=== PATIENT | male | born 1980 | race Caucasian/White ===

== ENCOUNTER 2024-12-04 12:50 | Day surgery (SDC) | payer MEDICAID, SELFPAY ==
--- NOTE | 2024-12-03 10:49 | EKG_ITS ---
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
[2024-12-03 10:54] VITALS: BMI 25.3
[2024-12-03 12:01] LABS: Basophils # (Auto) 0.1 Thou/mm3 (0.0-0.2); Basophils % (Auto) 1 % (0-2.5); Eosinophils # (Auto) 0.1 Thou/mm3 (0.0-0.5); Eosinophils % (Auto) 2 % (0-10); Hematocrit 42.1 % (41.0-53.0); Hemoglobin 14.4 g/dL (13.5-16.0); Immature Granulocytes Auto 0.02 Thou/mm3 (0.00-0.00); Lymphocytes # (Auto) 1.5 Thou/mm3 (1.0-4.8); Lymphocytes % (Auto) 25 % (10-50); Mean Corpuscular HGB Conc 34.2 g/dl (31.0-37.0); Mean Corpuscular Hemoglobin 31.8 pg (25.0-35.0); Mean Corpuscular Volume 93 fL (80-100); Monocytes # (Auto) 0.5 Thou/mm3 (0.0-0.8); Monocytes % (Auto) 8 % (0-12); Neutrophils # (Auto) 4.0 Thou/mm3 (1.8-7.7); Neutrophils % (Auto) 64 % (37-80); Nucleated Red Blood Cell # 0.00 Thou/mm3 (0.00-0.00); Nucleated Red Blood Cell % 0 /100 WBC (0); Platelet Count 186 Thou/mm3 (140-440); RDW Standard Deviation 42.2 fL (35.1-43.9); Red Blood Count 4.53 Miln/mm3 (4.50-5.90); White Blood Count 6.2 Thou/mm3 (3.8-10.6)
[2024-12-03 12:16] LABS: INR 1.0 (0.9-1.3); Partial Thromboplastin Time 28.8 Seconds (22.0-36.0); Prothrombin Time 11.1 Seconds (9.0-12.2)
[2024-12-03 12:19] LABS: Anion Gap 9 (7-16); BUN/Creatinine Ratio 7 Ratio (12-20); Blood Urea Nitrogen 7 mg/dL (9-23); Calcium 9.2 mg/dL (8.3-10.6); Carbon Dioxide 28.0 mMol/L (20.0-31.0); Chloride 105 mMol/L (98-107); Creatinine (Component) 1.0 mg/dL (0.6-1.3); Estimated Creatinine Clearance 98.3 mL/min (>60); Glucose 90 mg/dL (74-106); Osmolality,Calculated 281 (275-295); Potassium 4.1 mMol/L (3.4-5.1); Sodium 142 mMol/L (136-145); eGFR > 60 See Note
--- NOTE | 2024-12-03 14:04 | ESHP_ITS ---
RE: ROXANA PACE : 1980 DATE OF ADMISSION: 12/03/2024 The patient came to my office on 12/03/2024 for detailed preop history and physical examination. HISTORY OF PRESENTING COMPLAINT: The patient presented to me with history of pain in the right shoulder. Pain is going on for more than a couple of years, but last 5-6 months is quite painful. The patient graded intensity of the pain to be 9-10/10. Quality of life and activities of daily living is affected. Sleep is affected due to pain. The patient had cortisone shot and it did not help him. The patient has not done physical therapy stating that he is unable to move his left arm at all. MRI scan was obtained earlier, which revealed torn rotator cuff. PAST MEDICAL HISTORY: No history of diabetes mellitus, high blood pressure, asthma, seizure, chest pain, myocardial infarction, or bleeding disorder. PAST SURGICAL HISTORY: Status post left ankle fracture surgery. DRUG HISTORY: Nil known. ALLERGIES: NIL KNOWN. FAMILY HISTORY AND SOCIAL HISTORY: The patient denies smoking, drinking and is working. PHYSICAL EXAMINATION: GENERAL: Normal built person. VITAL SIGNS: BMI is 25.10, pulse 78 per minute, blood pressure is 137/85. NECK: Soft. Supple. No mass felt. Trachea is centrally placed. CARDIOVASCULAR SYSTEM: First and second heart sounds normal. No murmur heard. RESPIRATORY SYSTEM: Bilateral vesicular breath sounds. CHEST: Clear. ABDOMEN: Soft. No mass felt. Bowel sounds present. EXTREMITIES: Right shoulder examination reveals no wasting. There is 2+ tenderness at AC joint. Active range of motion is 0-100 degrees of abduction and 0-110 degrees of forward flexion. Internal rotation is severely restricted and painful. [place] test is positive. Drop arm test is positive and impingement test is positive as well. The patient has weak fist and park ranger. DIAGNOSTIC DATA: MRI scan revealed torn rotator cuff with DJD at the AC joint. The patient also has mild SLAP lesion. Mild subacromial and subdeltoid bursitis. ASSESSMENT AND PLAN: With the help of pictures and diagram of the shoulder model, the diagnosis and prognosis was explained. I explained that the patient needs surgical procedure. With the help of health care recruiter and diagram, the procedure was explained in detail. Explained that from 2 different bones, a small piece of the bone may be excised. Ligament has to be removed. Besides that, a repair of the rotator cuff will be done. All questions were answered. Risks with anesthesia were explained and that includes, but is not limited to, reaction to anesthetic agents, cardiac arrest, and rarely, it might be fatal. Risk with operation includes infection and if that happens, the patient will need further surgical procedure. Other risks include delayed healing, wound dehiscence, etc. No guarantee is given regarding the outcome of the procedure and/or relief of symptoms. Indeed, sometimes there is a risk of nerve damage because manipulation of the shoulder will be done as well. No guarantee is given regarding the outcome of the procedure, but indeed, physical therapy is very important component for successful outcome of this kind of procedure. Full cooperation is very helpful for successful outcome. Detailed discussion took place. The patient wanted to proceed with surgery. Surgery is booked for 12/04/2024. DT: 12:09:09 TT: 14:02:00 Ref: [id number] - TID: [id number]
[2024-12-04] VITALS (7 sets, daily range): BP systolic 122–144; BP diastolic 81–95; PULSE 60–100; RESP 14–18; TEMP 36.4–36.7; O2SAT 95–99; BMI 25.0
[2024-12-04] MEDS: RINGERS LACTATED 1000 ML 1,000 ML 20 ML IV (13:44)
--- NOTE | 2024-12-04 16:18 | ESOP_ITS ---
Date of Procedure 12/04/24 Pre Op Diagnosis 1. Right rotator cuff tear 2 right shoulder impingement syndrome Post Op Diagnosis Same Procedure 1. Excision lateral end of the clavicle 2 excision coracoacromial ligament 3. Acromioplasty 4. Repair of rotator cuff 5. Manipulation under anesthesia Findings Refer dictation Procedure Description The patient was given general endotracheal anesthesia. Shoulder block was also given. Once satisfactory anesthesia was achieved patient was put in about 45?? sitting position with sandbag underneath the shoulder blade. The part was thoroughly prepped and draped. A skin incision was made at the AC joint extending proximally towards the neck for a half inches and distally towards the arm for about couple of inches. Deeper dissection was carried out. Bleeding vessels were electrocoagulated as and when encountered. The soft tissue was reflected. Following that AC joint was exposed and AC joint was exposed. The deltoid muscle was reflected from the anterior and lateral aspect of the acromial process. It revealed 3 mm osteophytes on the anterior side and couple of millimeter osteophytes on the lateral side. Following that a periosteal elevator was placed underneath the lateral end of the clavicle and lateral 3-4 mm was excised. The coracoacromial ligament was removed. The anterior 2 mm and lateral 2 mm along with osteophytes were removed with the help of saw. With the help of curved osteotome the undersurface of the Acromial processes was chiseled out. That made more room between the superior surface of the head of the humerus and undersurface of the acromial process. Following that the rotator cuff was inspected. It revealed an oval tear, however most of the fibers were attached to the greater tuberosity. Wound was irrigated with antibiotic solution every 4-5 minutes. The right shoulder was manipulated at this time. Full range of abduction and forward flexion was achieved The rotator cuff tear was repaired with 2-0 Vicryl. 2 drill holes were made on the acromial process and deltoid muscle was stitched back to it. Some reinforcement sutures were placed. The subcutaneous tissue was then closed with the help of 2-0 Vicryl and 3-0 Vicryl in layers. The skin was closed with guillermo. After cleaning the wound with hydrogel proximal solution and sterile dressing was applied. Patient was taken to the recovery room in good condition. Estimated blood loss 20 mL. Prognosis in this case is good. Anesthesia GETA and other Pathology / specimen None Estimated Blood Loss 20 Surgeon Venkat Pacheco MD Surgical Staff Operation Date: 12/04/24 15:30 Case Staff Anesthesiologist: Ortega Mueller RNsales correspondence clerk: Deandre Jeff
--- NOTE | 2024-12-04 16:30 | SUR.PHASEI ---
1630 Patient arrived to recovery resting comfortably in [facility], awake and talking with staff, breathing unlabored, vital signs stable, denies pain, dressing intact to right shoulder; guillermo, adaptic, fluffs, abd, medipore tape, no bleeding noted, denies nausea, report received from Nino SCHNEIDER and Dr. Mueller
--- NOTE | 2024-12-04 17:22 | SUR.PHASEII ---
1722 Patient meets discharge criteria from awake and alert, breathing unlabored, vital signs stable, denies pain, dressing intact; no bleeding noted, arm sling in place for support, assisted with dressing into his clothing by his , discharge instructions given to patient and patients , signed discharge instructions. Patient given all his belongings prior to discharge, transported via wheelchair and left in a private vehicle.
--- NOTE | 2024-12-06 14:40 | PD.ANESPROG ---
Documentation for date of: 12/06/24 POST ANESTHESIA FOLLOW UP: Patient had general LMA anesthesia and R interscalene nerve block for R rotator surgery on 12/04/24. I just called and spoke with him on the phone and he denied any problems from anesthesia and said No problem at all, everything was great. Ortega Mueller MD Anesthesia Progress Note Progress Note Most recent Vital Signs: Last Vital Signs Temp 98.0 F 12/04/24 17:00 Pulse 88 12/04/24 17:15 Resp 15 12/04/24 17:15 BP 130/95 H 12/04/24 17:15 Pulse Ox 98 12/04/24 17:15
== END 2024-12-04 17:22 | disposition home or self-care (01) ==
PROVIDERS: PCP Family Medicine; Referring Provider Orthopaedic Surgery; Visit Provider Orthopaedic Surgery
PROC: (CPT 23412; principal; 2024-12-04 16:00)
DX: M75.101 Unspecified rotator cuff tear or rupture of right shoulder, not specified as traumatic (principal); M75.41 Impingement syndrome of right shoulder; Z01.810 Encounter for preprocedural cardiovascular examination
CPT/HCPCS: 23412; 23130; 23120; 36415; 80048; 85025; 85610; 85730; 93005; A4217; A4649; J1100; J2250; J2704; J2765; J2795; J3010; J3490; J7120

== ENCOUNTER 2024-12-18 06:08 | Inpatient (IN) | payer MEDICAID, SELFPAY ==
[2024-12-18] VITALS (27 sets, daily range): BP systolic 112–168; BP diastolic 66–100; PULSE 54–83; RESP 12–96; TEMP 36.3–36.9; O2SAT 94–100; BMI 25.1; BMI 24.8
--- NOTE | 2024-12-18 06:23 | XR_ITS ---
Examination: CT right shoulder, without contrast. 2-D sagittal reconstructions. 2-D coronal reconstructions. 3-D reconstructions. Date and time of exam:December 18, 2024 0824 hours INDICATIONS: Shoulder pain with drainage today and fever, shoulder surgery 2 weeks ago CTDI: vol (mGy):11.5. DLP: (mGycm):326. Technique: Multiple 1.25 mm axial sections of the right shoulder without intravenous contrast have been obtained. 2-D sagittal and coronal reconstructions have been obtained. 3-D reconstructions have been obtained. Low dose protocols were performed. One or more of the following dose reduction techniques were used; automated exposure control, adjustment of the mA and/or KV according to patient size, use of iterative reconstruction technique. Findings: Humeral head neck and shaft appear intact No shoulder dislocation No AC joint separation No soft tissue abscess No foreign body IMPRESSION: No fracture or dislocation No soft tissue abscess depicted Consider elective MRI shoulder without contrast follow-up as clinically warranted
--- NOTE | 2024-12-18 06:29 | PD.EDWOUND ---
ED Wound/Laceration-RME/HPI General Chief Complaint: Wound/Laceration Stated Complaint: RIGHT SHOULDER WOUND Time Seen by Provider: 12/18/24 06:14 Arrival date/time: 12/18/24 06:08 Limitations: no limitations RME / HPI RME / HPI narrative: DR. OWEN YANCEY ED EVALUATION: 44-year-old male with history of lymphoma with concern for possible recurrence of lymphoma presents to the Emergency Department with complaint of discharge from right arm following recent right rotator cuff repair performed by Dr. Rosa on 12/04/2024. Patient was started on Keflex on Saturday after his post-op visit. He returned to the surgeon yesterday and was sent to the ED for IV antibiotics and admission. He drinks alcohol occasionally (2 beers) and denies drug use. No known allergies. Related Data Home Medications ?Medication ?Instructions ?Recorded ?Confirmed No Known Home Medications 12/03/24 12/03/24 Allergies Allergy/AdvReac Type Severity Reaction Status Date / Time No Known Allergies Allergy Verified 12/04/24 13:20 Review of Systems Review of Systems Systems Reviewed: All systems reviewed, normal except as documented Past Medical History Past Medical History MUSCULOSKELETAL: Positive Musculoskeletal Disorders and Fractures (Left ankle) OTHER HISTORY: Positive Chemotherapy, Chicken Pox and Cancer (Non Hodgkin lymphoma) Family History FAMILY HISTORY: Positive Family Surgery Social History SMOKING STATUS: Never smoker SUBSTANCE USE: does not use ALCOHOL: Current ALCOHOL FREQUENCY: 0-2 Drinks per Day ED Exam General Limitations: Present no limitations General appearance: Present alert and in no apparent distress Head Head exam: Present atraumatic, normocephalic and normal inspection Eye Eye exam: Present normal appearance, PERRL and EOMI ENT ENT exam: Present normal exam, normal oropharynx and mucous membranes moist Neck Neck exam: Present normal inspection, full ROM and trachea midline Chest Chest inspection: Present normal inspection and symmetric chest wall rise Respiratory Respiratory exam: Present normal lung sounds bilaterally Cardiovascular Cardiovascular exam: Present regular rate, normal rhythm and normal heart sounds Abdominal Exam Abdominal exam: Present soft and normal bowel sounds Extremities Exam Extremities exam: Present full ROM and other (Right arm surgical scar that measures 5 cm, looks dry now with some surrounding erythema and mild tenderness; otherwise good 2+ pulses and FROM) Back Exam Back exam: Present normal inspection and full ROM Neurological Exam Neurological exam: Present alert, oriented X3 and CN II-XII intact Psychiatric Psychiatric exam: Present normal affect and normal mood Skin Skin exam: Present warm, dry, intact and normal color Course Quality Measures none Orders Category Date Time Status CT Screening NOW Care 12/18/24 06:24 Completed NPO NOW Care 12/18/24 07:48 Active Diet NPO (NOW) Diet 12/18/24 07:[address] shoulder RT w con Stat Exams 12/18/24 06:23 Completed Abscess Culture and Gram Stain Stat Lab 12/18/24 07:48 Ordered Blood Culture (Lab) Stat Lab 12/18/24 07:36 Received CBC Stat Lab 12/18/24 07:36 Completed CMP [Comprehensive Metabolic Panel] Stat Lab 12/18/24 07:36 Completed PT [Prothrombin Time with INR] Stat Lab 12/18/24 07:36 Completed Vancomycin,Trough Stat Lab 12/19/24 05:00 Ordered Piper/Tazo Inj [Zosyn Inj] 4.5 gm Med 12/18/24 06:26 Discontinued Sodium Chloride 0.9% (Pop) [NS 0.9% mini bag] 100 ml IV NOW Ringers Lactated 1000 ml [Lactated Ringers] 1,000 ml Med 12/18/24 06:27 Discontinued IV 999 mls/hr Vancomycin Inj 1,500 mg Med 12/18/24 08:00 Active Sodium Chloride 0.9% 500 ml [Ns] 500 ml IV X1 Vancomycin Pharmacy to Dose Med 12/18/24 06:26 Active 1 each IV QDAY PRN Vancomycin/Water 1Gm Ivpb 200 ml Med 12/18/24 14:00 Pending IV Q8HR Vital Signs Vital signs: Vital Signs Temperature 97.5 F 12/18/24 06:22 Pulse Rate 67 12/18/24 06:22 Respiratory Rate 17 12/18/24 06:22 Blood Pressure 131/79 H 12/18/24 06:22 Pulse Oximetry (%) 97 12/18/24 06:22 Oxygen Delivery Method Room Air 12/18/24 06:22 Wound / Laceration MDM Narrative MDM Narrative:: Patient is a 44-year-old male with medical history notable for non-Hodgkin's lymphoma that is in the emergency department with concerns for surgical complication of his right shoulder rotator cuff repair. Vital signs and exam as listed. Concern for cellulitis, deep space wound infection. Patient nontoxic does not appear septic at this time. Patient is GCS 15. Ordered labs, broad-spectrum antibiotics, CT of the right shoulder with contrast. Will also consult patient's orthopedic surgeon. 0751: Dr. Pacheco called and said to cancel CT and just admit as he would like to take the patient to the operating room sometime today. I, Sonia Taylor, am scribing for and in the presence of Dr. Phillips. Discussed case with the hospitalist team, would like to wait on results of labs before admission. Labs returned, no acute hematologic or significant metabolic abnormalities. Patient did go to CT before I was able to cancel it. CT does not show any deep space fluid collection or abscess. Discussed case with hospitalist team, kindly accepted patient for admission Patient data External records reviewed:: [facility] previous records Clinical information provided by:: patient Social determinants that could affect healthcare access:: alcohol use (He drinks alcohol occasionally (2 beers) and denies drug use.) Patient has the following chronic illnesses:: lymphoma with concern for possible recurrence of lymphoma. No known allergies. How is presenting disease/condition affected by chronic disease/condition?: exacerbated by (History of non-Hodgkin's lymphoma) Evaluation data The following diagnostics were reviewed and interpreted by me:: lab results Lab and/or radiology exams considered but not ordered:: Shoulder CT but Dr. Pacheco would like to just admit. Interpretation Summary: See narrative above. Medications / Prescriptions Medications or Prescriptions considered but not ordered:: None Medication administrations:: Medication Administration History Vancomycin HCl 1,500 mg/ (Sodium Chloride) 500 mls @ 200 mls/hr IV X1 ONE Stop: 12/18/24 10:29 Last Admin: 12/18/24 09:19 Dose: 200 mls/hr Documented By: TM Vancomycin HCl (Vancomycin/Water 1gm Ivpb) 200 mls @ 120 mls/hr IV Q8HR MELISSA; Protocol Stop: 12/25/24 13:59 Ceftriaxone Sodium/Dextrose (Rocephin/D5w 1gm Iv Premix) 1 gm in 50 mls @ 100 mls/hr IV QDAY MELISSA Stop: 12/26/24 08:59 Pharmacy Consult (Vancomycin Pharmacy To Dose 1 Each Each) 1 each IV QDAY PRN PRN Reason: PROTOCOL Stop: 01/17/25 06:25 Discontinued Medications Piperacillin Sod/Tazobactam (Sod 4.5 gm/ Sodium Chloride) 100 mls @ 200 mls/hr IV NOW ONE Stop: 12/18/24 06:55 Last Admin: 12/18/24 08:14 Dose: 200 mls/hr Documented By: YENIFER Lactated Ringer's (Lactated Ringers) 1,000 mls @ 999 mls/hr IV .Q1H1M ONE Stop: 12/18/24 07:27 Last Admin: 12/18/24 08:15 Dose: 999 mls/hr Documented By: TM see above Consultations Consultation(s) initiated? (list below): Yes Consultation #1 (Physician, Specialty, Details): Discussed test HPI, PMHx, lab, radiology results and/or management with Dr. Pacheco. Will consult an admission to the hospitalist. Time: 06:35 Consultation #2 (Physician, Specialty, Details): Dr. Pacheco called would like the patient admitted Time: 07:51 Diagnosis Wound Differential Diagnosis: abscess (cellulitis, post-surgical wound infection, abscess formation, and lymphoma recurrence with secondary drainage) and other (Cellulitis) Most likely diagnosis given after review of the tests above:: Surgical complication, wound infection Admission Indicated Admission indicated?: indicated Admission Request Was there a request for admission?: Yes Admission Attestation Admission request attestation: Discussed case with resident from Hospitalist service regarding admission. Discussed patients ED course, exam findings, labs, and radiology results. The Hospitalist agrees to accept the patient for admission. Disposition Plan Disposition Plan: Admit Discharge Plan Problem List Clinical Impression: Infected wound, Surgical complication
--- NOTE | 2024-12-18 07:40 | PC.NURSE ---
spoke w/lab at this time to request blood cultures to be drawn so meds can be started, reports they will when they come back from [facility]
[2024-12-18] MEDS: PIPER/TAZO INJ 4.5 GM in SODIUM CHLORIDE 0.9% (POP) 100 ML IV (08:14)
[2024-12-18] MEDS: RINGERS LACTATED 1000 ML 1,000 ML 999 ML IV (08:15)
[2024-12-18 08:16] LABS: Basophils # (Auto) 0.1 Thou/mm3 (0.0-0.2); Basophils % (Auto) 1 % (0-2.5); Eosinophils # (Auto) 0.2 Thou/mm3 (0.0-0.5); Eosinophils % (Auto) 3 % (0-10); Hematocrit 42.0 % (41.0-53.0); Hemoglobin 14.5 g/dL (13.5-16.0); Immature Granulocytes Auto 0.03 Thou/mm3 (0.00-0.00); Lymphocytes # (Auto) 1.3 Thou/mm3 (1.0-4.8); Lymphocytes % (Auto) 23 % (10-50); Mean Corpuscular HGB Conc 34.5 g/dl (31.0-37.0); Mean Corpuscular Hemoglobin 32.0 pg (25.0-35.0); Mean Corpuscular Volume 93 fL (80-100); Monocytes # (Auto) 0.4 Thou/mm3 (0.0-0.8); Monocytes % (Auto) 7 % (0-12); Neutrophils # (Auto) 3.7 Thou/mm3 (1.8-7.7); Neutrophils % (Auto) 65 % (37-80); Nucleated Red Blood Cell # 0.00 Thou/mm3 (0.00-0.00); Nucleated Red Blood Cell % 0 /100 WBC (0); Platelet Count 232 Thou/mm3 (140-440); RDW Standard Deviation 41.1 fL (35.1-43.9); Red Blood Count 4.53 Miln/mm3 (4.50-5.90); White Blood Count 5.7 Thou/mm3 (3.8-10.6)
[2024-12-18 08:34] LABS: Alanine Aminotransferase 105 U/L (10-49); Albumin, Serum 4.9 gm/dL (3.5-5.0); Albumin/Globulin Ratio 2.0 (1.2-2.2); Alkaline Phosphatase 69 U/L (46-116); Anion Gap 10 (7-16); Aspartate Amino Transferase 92 U/L (0-34); BUN/Creatinine Ratio 14 Ratio (12-20); Bilirubin,Total 0.5 mg/dL (0.3-1.2); Blood Urea Nitrogen 11 mg/dL (9-23); Calcium 9.6 mg/dL (8.3-10.6); Calcium (Corrected) 9.6 mg/dL (8.5-10.1); Carbon Dioxide 26.3 mMol/L (20.0-31.0); Chloride 103 mMol/L (98-107); Creatinine (Component) 0.8 mg/dL (0.6-1.3); Estimated Creatinine Clearance 122.9 mL/min (>60); Globulin 2.4 gm/dL (2.3-3.5); Glucose 87 mg/dL (74-106); Osmolality,Calculated 275 (275-295); Potassium 4.0 mMol/L (3.4-5.1); Sodium 139 mMol/L (136-145); Total Protein 7.3 gm/dL (5.7-8.2); eGFR > 60 See Note
[2024-12-18 08:55] LABS: INR 1.0 (0.9-1.3); Prothrombin Time 10.7 Seconds (9.0-12.2)
[2024-12-18] MEDS: Vancomycin Inj 1,500 MG in SODIUM CHLORIDE 0.9% 500 ML 500 ML 200 MG IV (09:19)
--- NOTE | 2024-12-18 10:35 | SUR.PREOP ---
Patient expressed gratitude for prayer before his procedure.
--- NOTE | 2024-12-18 11:00 | SUR.PREOP ---
Received report on pt. from Jenny SCHNEIDER in ER.
--- NOTE | 2024-12-18 11:46 | SUR.PREOP ---
Pt. transferred from ER to [facility] via w/c with all of belongings accompanied by . Pt. is AAOx3, VSS, no c/o pain or nausea at this time, pt. has 20g IV to left AC, dressing to right shoulder d/t s/p right rotator cuff repair on 12/04/24, redness and scant amount of yellowish drainage noted. Pt.'s at bedside. Pt. awaiting surgical procedure.
--- NOTE | 2024-12-18 13:30 | PD.SUROPNT ---
Date of Procedure 12/18/24 Pre Op Diagnosis 1. Is status post right rotator cuff repair with infections Post Op Diagnosis Same Procedure Incision debridement and drainage right shoulder Findings Refer dictation Procedure Description Patient was given general endotracheal anesthesia. Was satisfactory anesthesia was achieved patient was put in 45 degree sitting position. Sandbag was placed underneath the right shoulder. Following that the part was thoroughly prepped and draped. Wound culture swab was then obtained for aerobic anaerobic culture sensitivity and for Gram staining The skin margin towards the medial side was ragged and infected. Those were excised. The deeper dissection was carried out. All the infected tissue was then removed. No further pus came out. Following that wound was irrigated with copious amount of antibiotic solution, hydrogen peroxide solution and Betadine iodine was solution. Following that all the gloves and instruments were changed. The infection was present up to the subcu tissues and did not go to the muscle plane. The closure was done with the help of 1 Prolene in an interrupted fashion. Sterile dressing was applied. Anesthesia GETA Pathology / specimen None Estimated Blood Loss 10 Surgeon Venkat Pacheco MD Surgical Staff Operation Date: 12/18/24 14:00 <No data on this case meets the specified criteria>
--- NOTE | 2024-12-18 13:35 | SUR.PHASEI ---
pt awake, alert, able to follow commands, breathing unlabored, dressing to right shoulder clean, dry, and intact, report from Breanna RN
--- NOTE | 2024-12-18 13:45 | SUR.PHASEI ---
pt tolerating oral fluids without difficulty swallowing or n/v
--- NOTE | 2024-12-18 14:01 | ESHP_ITS ---
<Statement entered by Jenise Choi MD - 12/18/24 15:07> I have reviewed the note and agree with the resident's assessment & plan with exceptions as below. I have personally reviewed labs, imaging, home meds/prior records, examined the patient, formulated and discussed management plan with the IM team. Pt is a 44 y/o male with PMHx of Non-Hodgkin's lymphoma (in remission since 2019, handled by chemotherapy) who comes for an evaluation of R shoulder pain, and drainage with associated fever that has been going on for 5 days. Pt reports that his orthopedic surgeon, Dr. Escalante, had did an operation on his shoulder for his torn rotator cuff. He started to feel fevers and shoulder pain about 5 days after the procedure and was on Keflex for 2 days, which helped his fever. He reports that he has had to change his shoulder dressing multiple times and he spoke with his ortho doctor who recommended him to go to the ER for admission for possible washout procedure and IV abx. Pt will get procedure done, Ortho consulted, appreciate recs. Will start pt on IV abx with Rocephin and Vancomycin, will hold on Pseudomonal overage at this time as patient does not have DM. Will order MRSA screen and continue with multimodal pain analgesia. Repeat hematology, and chemistry in AM. #Shoulder pain #Shoulder erythema DDx: Abscess, cellulitis, Osteomyelitis Plan: - IV Rocephin + Vancomycin - MRSA Screen - Ortho consulted, Appreciate recs - Multimodal pain analegesia #Nicotine Dependence Plan: - Nicotine Patch as needed Jenise Choi, PGY-2 Internal Medicine Documentation for date of: 12/18/24 HPI History of Present Illness Chief complaint: R shoulder pain and drainage History of present illness: A 44 y/o male with PMHx of Non-Hodgkin's lymphoma (in remission since 2019, s/p chemotherapy) who comes for an evaluation of R shoulder pain, and drainage with associated fever that has been going on for 5 days. Pt reports that his orthopedic surgeon, Dr. Escalante, had did an operation on his shoulder for his torn rotator cuff. He started to feel fevers and shoulder pain about 5 days after the procedure and was on Keflex for 2 days, which helped his fever. He reports that he has had to change his shoulder dressing multiple times and he spoke with his ortho doctor who recommended him to go to the ER for admission for possible washout procedure and IV abx. He is also scheduled to get a lymph node biopsy by his Oncologist in a week or so who is based out in [place]. Denies any CP, SOB, wheezing, fevers, chills, or NVD at this time. ED Course: T: 97.5 HR: 67, RR: 17, BP 131/79, SPO2: 98 on RA. Physical exam was notable for a right arm surgical scar that measures 5 cm, was dry with some surrounding erythema and mild tenderness. CBC and coagulation panel are unremarkable. CMP is notable for AST [address] Shoulder CT: No fracture or dislocation, No soft tissue abscess depicted Medications administered: zosyn 4.5g IV x1, LR 1L IV x1, Vancomycin 1500mg IV x1 PMHx: As above Surgeries: Rotator cuff repair Meds: Does not take any medicines Allergies: NKDA Family Hx: Limited family hx at this time. Social Hx: Does construction for a living, uses [employer] occassionally, drinks ~2 beers a night, used to smoke cigerattes for 20 years, however uses oral nicotine now (Zyns) Review of Systems Review of Systems Systems Reviewed: All systems reviewed, normal except as documented Narrative Review of Systems: 12 point ROS reviewed and is otherwise negative unless stated directly in the HPI. Past Medical History Past Medical History RESPIRATORY: Positive Tobacco Use OTHER HISTORY: Positive Chemotherapy (Hx of Non-Hodgkins lymphoma in remission since 2019 s/p chemotherapy) Social History SMOKING STATUS: Former smoker (20 years ago) SUBSTANCE USE: marijuana ALCOHOL: Current (~2 beers a night) ALCOHOL FREQUENCY: 0-2 Drinks per Day Exam Vital Signs Temp Pulse Resp BP Pulse Ox O2 Del Method 97.8 F 54 L 13 138/91 H 99 Room Air 12/18/24 11:23 12/18/24 11:23 12/18/24 11:23 12/18/24 11:12/18/24 11:12/18/24 08:32 Narrative Exam General: AAOx3, NAD, well appearing male HEENT: Moist mucous membranes, conjunctiva clear, EOMI, PERRLA, Cardiovascular: S1, S2, radial pulses +2 bilat, RRR Pulmonary: CTAB bilat no cough, no wheezing GI: No tenderness to light or deep palpitation, no guarding, rigidity, rebound tenderness or distension Extremities: No presence of trace or pitting edema in lower extremities bilaterally, dorsalis pedis pulses +2 bilaterally, R shoulder incision seen with some erythema and is purluent over dressing Neuro: AAOx3, no focal motor or sensory deficits in the UE or LE bilat Psych: Good judgement, thought and behavior Results: Labs 12/19/24 06:49 12/19/24 06:49 Labs: Short CBC 12/18/24 Range/Units 07:36 WBC 5.7 (3.8-10.6) Thou/mm3 Hgb 14.5 (13.5-16.0) g/dL Hct 42.0 (41.0-53.0) % Plt Count 232 D (140-440) Thou/mm3 BMP 12/18/24 07:36 Sodium 139 Potassium 4.0 Chloride 103 Carbon Dioxide 26.3 BUN 11 Creatinine 0.8 Glucose 87 Calcium 9.6 Liver Function 12/18/24 Range/Units 07:36 Total Bilirubin 0.5 (0.3-1.2) mg/dL AST 92 H (0-34) U/L ALT 105 H (10-49) U/L Alkaline Phosphatase 69 (46-116) U/L Albumin 4.9 (3.5-5.0) gm/dL Quality Measures Quality Measures none Medications Home Medications and Allergies Home Medications ?Medication ?Instructions ?Recorded ?Confirmed ?Type cephalexin 500 mg capsule 500 mg PO Q8H 12/18/2412/18 History hydrocodone 5 mg-acetaminophen 325 1 tab PO Q6H PRN pa in 12/18/24 12/18/24 History mg tablet Allergies Allergy/AdvReac Type Severity Reaction Status Date / Time No Known Allergies Allergy Verified 12/18/24 13:57 Visit Medications Fentanyl Citrate (Fentanyl Cit Inj 50 Mcg/Ml Amp 2ml) 50 mcg IVP Q5M PRN PRN Reason: PAIN SCALE 4-10(Mod-Sev Stop: 12/18/24 15:08 Hydralazine HCl (Hydralazine Inj 20 Mg/Ml Vial) 5 mg IVP Q20M PRN PRN Reason: SEE COMMENTS Stop: 12/18/24 15:08 Vancomycin HCl (Vancomycin/Water 1gm Ivpb) 200 mls @ 120 mls/hr IV Q8HR MELISSA; Protocol Stop: 12/25/24 13:59 Ceftriaxone Sodium/Dextrose (Rocephin/D5w 1gm Iv Premix) 1 gm in 50 mls @ 100 mls/hr IV QDAY MELISSA Stop: 12/26/24 08:59 Vancomycin HCl (Vancomycin/Water 1gm Ivpb) 200 mls @ 120 mls/hr IV X1 ONE; Protocol Stop: 12/18/24 15:39 Promethazine HCl 12.5 mg/ (Sodium Chloride) 50.5 mls @ 2.5 mls/min IV X1 PRN PRN Reason: NAUSEA OR VOMITING Stop: 12/18/24 15:08 Meperidine HCl (Meperidine Inj 50 Mg/Ml Vial) 12.5 mg IVP Q5M PRN PRN Reason: SHIVERING Stop: 12/18/24 15:08 Midazolam HCl (Midazolam Inj 1 Mg/Ml Vial 2 Ml) 1 mg IVP Q5M PRN PRN Reason: ANXIETY Stop: 12/18/24 15:08 Morphine Sulfate (Morphine Sulf Inj 10 Mg/Ml Vial) 4 mg IVP Q10M PRN PRN Reason: PAIN SCALE 4-10(Mod-Sev Stop: 12/18/24 15:08 Ondansetron HCl (Ondansetron Inj 2 Mg/Ml Inj 2 Ml) 4 mg IVP X1 PRN PRN Reason: NAUSEA OR VOMITING Stop: 12/18/24 15:08 Pharmacy Consult (Vancomycin Pharmacy To Dose 1 Each Each) 1 each IV QDAY PRN PRN Reason: PROTOCOL Stop: 01/17/25 06:25 Discontinued Medications Piperacillin Sod/Tazobactam (Sod 4.5 gm/ Sodium Chloride) 100 mls @ 200 mls/hr IV NOW ONE Stop: 12/18/24 06:55 Last Infusion: 12/18/24 08:44 Dose: Infused Lactated Ringer's (Lactated Ringers) 1,000 mls @ 999 mls/hr IV .Q1H1M ONE Stop: 12/18/24 07:27 Last Admin: 12/18/24 08:15 Dose: 999 mls/hr Vancomycin HCl 1,500 mg/ (Sodium Chloride) 500 mls @ 200 mls/hr IV X1 ONE Stop: 12/18/24 10:29 Last Admin: 12/18/24 09:19 Dose: 200 mls/hr Assessment & Plan Plan Assessment and Plan A 44 yo male with a PMH of Non-Hodgkin's lymphoma (in remission since 2019 s/p chemoradiation) presents with R shoulder pain and drainage with associated fever s/p right rotator cuff repair. Patient is being admitted following incision debridement and drainage of right shoulder by Dr. Pacheco. #S/P right rotator cuff repair w/ possible septic joint #S/P incision debridement and drainage R shoulder Patient presents with right shoulder pain, erythema, and drainage. Patient was recommended by Dr. Pacheco to present to ED for IV abx and surgical intervention as he was having surgical site pain and increased drainage despite being placed on oral keflex Plan: - IV Rocephin + Vancomycin - MRSA Screen - Ortho consulted, Appreciate recs - Multimodal pain analegesia per pain scale protocol #Nicotine Dependence Patient used to smoke cigerattes for 20 years, however uses oral nicotine now (Zyns) Plan: - Nicotine Patch as needed Health Maintenance: Disposition: Medsurg DVT Prophylaxis: Pending ortho recs Diet: Regular CODE STATUS: Full Code Case and Plan discussed with my attending physician, , and my senior resident, Dr. Jimbo Puentes, [facility] Attending Provider Attestation/Addendum I have discussed and was present for the essential components of the history, physical examination, diagnosis, and treatment plan with the resident. I agree with the patient's care as documented by the resident and amended herein by me. Yahir Arias DO. Although this document has been carefully reviewed, there may still be some phonetic and other typographical errors. These errors are purely grammatical due to imperfections in the software program and should not be construed in any way to compromise the substance of the patient's medical care during this visit.
--- NOTE | 2024-12-18 14:46 | SUR.PHASEI ---
Report to Breanna RN
[2024-12-18] MEDS: NICOTINE PATCH 7 MG/24 HR PATCH.TD24 TOP (15:19)
--- NOTE | 2024-12-18 15:44 | SUR.PHASEI ---
1324: Pt received in [facility] via [facility]. Report from Bobo SCHNEIDER and Dr. Mueller. Pt groggy, but awake. Resp even, unlabored. BP elevated. No recommendations from anesthesia. Other VS stable. Dressing to right shoulder dry, clean, intact. No c/o pain.
--- NOTE | 2024-12-18 15:47 | SUR.PHASEI ---
1335: Report to Camron SCHNEIDER. 1446: Assumed care. Pt resting with no complaints voiced. VS stable. Dressing dry, clean, intact. Pt consumed 75% of lunch meal. at bedside. Vancomycin infusion complete. No untoward effects observed. 1515: Pt has been resting with no complaints voiced. Pt provided urinal. Voided 325cc clear yellow urine. 1519: Received Nicotine Patch from pharmacy. Applied to left upper arm.
--- NOTE | 2024-12-18 16:15 | SUR.PHASEI ---
1610: Pt voided using urinal. 300cc clear yellow urine. VS stable. Dressing remains unchanged.
--- NOTE | 2024-12-18 16:53 | SUR.PHASEI ---
1645 Awake and alert, sitting upp in bed, right shoulder dressing clean dry and intact, no complaints ,no s/s of distress noted , at bedside.
--- NOTE | 2024-12-18 18:03 | SUR.PHASEI ---
9584 Transfer to room 355 in stable condition, no complaints, no s/s of distress noted, no change to right shoulder dressing, at bedside./
[2024-12-18] MEDS: VANCOMYCIN/WATER 1GM IVPB 200 ML IV (22:19)
[2024-12-19] VITALS (8 sets, daily range): BP systolic 111–138; BP diastolic 68–81; PULSE 58–101; RESP 17–96; TEMP 36.2–36.7; O2SAT 93–99
[2024-12-19] MEDS: VANCOMYCIN/WATER 1GM IVPB 200 ML IV ×3 (05:26→21:04)
[2024-12-19 07:11] LABS: Basophils # (Auto) 0.1 Thou/mm3 (0.0-0.2); Basophils % (Auto) 1 % (0-2.5); Eosinophils # (Auto) 0.0 Thou/mm3 (0.0-0.5); Eosinophils % (Auto) 0 % (0-10); Hematocrit 38.5 % (41.0-53.0); Hemoglobin 13.4 g/dL (13.5-16.0); Immature Granulocytes Auto 0.05 Thou/mm3 (0.00-0.00); Lymphocytes # (Auto) 1.3 Thou/mm3 (1.0-4.8); Lymphocytes % (Auto) 13 % (10-50); Mean Corpuscular HGB Conc 34.8 g/dl (31.0-37.0); Mean Corpuscular Hemoglobin 31.8 pg (25.0-35.0); Mean Corpuscular Volume 91 fL (80-100); Monocytes # (Auto) 0.7 Thou/mm3 (0.0-0.8); Monocytes % (Auto) 7 % (0-12); Neutrophils # (Auto) 8.3 Thou/mm3 (1.8-7.7); Neutrophils % (Auto) 79 % (37-80); Nucleated Red Blood Cell # 0.00 Thou/mm3 (0.00-0.00); Nucleated Red Blood Cell % 0 /100 WBC (0); Platelet Count 236 Thou/mm3 (140-440); RDW Standard Deviation 39.3 fL (35.1-43.9); Red Blood Count 4.21 Miln/mm3 (4.50-5.90); White Blood Count 10.5 Thou/mm3 (3.8-10.6)
[2024-12-19 07:40] LABS: Alanine Aminotransferase 100 U/L (10-49); Albumin, Serum 4.3 gm/dL (3.5-5.0); Albumin/Globulin Ratio 2.0 (1.2-2.2); Alkaline Phosphatase 60 U/L (46-116); Anion Gap 9 (7-16); Aspartate Amino Transferase 60 U/L (0-34); BUN/Creatinine Ratio 11 Ratio (12-20); Bilirubin,Total 0.8 mg/dL (0.3-1.2); Blood Urea Nitrogen 9 mg/dL (9-23); Calcium 9.4 mg/dL (8.3-10.6); Calcium (Corrected) 9.4 mg/dL (8.5-10.1); Carbon Dioxide 24.4 mMol/L (20.0-31.0); Chloride 107 mMol/L (98-107); Creatinine (Component) 0.8 mg/dL (0.6-1.3); Estimated Creatinine Clearance 122.9 mL/min (>60); Globulin 2.2 gm/dL (2.3-3.5); Glucose 95 mg/dL (74-106); Magnesium 1.7 mg/dL (1.6-2.6); Osmolality,Calculated 278 (275-295); Phosphorous 3.0 mg/dL (2.4-5.1); Potassium 4.1 mMol/L (3.4-5.1); Sodium 140 mMol/L (136-145); Total Protein 6.5 gm/dL (5.7-8.2); eGFR > 60 See Note
[2024-12-19] MEDS: cefTRIAXone/D5w 1gm IV premix 1 GM/50 ML BAG IV (08:45)
--- NOTE | 2024-12-19 11:08 | PC.SS ---
Patient is a 44YO White male, reason for visit: ARTHROSCOPIC LAVAGE. ? Transmission Inspector met with patient at bedside to complete initial assessment. Role and purpose of today?s contact was explained. Patient confirmed his demographic information. He stated his father Mik Caldwell Sr. [phone] is his primary medical surrogate decisionmaker. Patient reported being independent with ADL completion and independent with ambulation as well. [facility] PCP: KARYNA, last appt. was 6 months ago. Next of kin: Parent Mik Caldwell Sr. [phone]. Discharge plan: Home, family to transport.
[2024-12-19] MEDS: NICOTINE PATCH 14 MG/24 HR PATCH.TD24 TOP (11:48)
--- NOTE | 2024-12-19 11:51 | ESPR_ITS ---
Documentation for date of: 12/19/24 Subjective Subjective Interval history: Patient was seen and examined at bedside. No acute events took place overnight. Patient states that he has not seen the incision site post I&D as it has been wrapped up in dressings, but the pain is improved. Denies fevers. Active range of motion is limited with overhead motions. Patient adds, that the current dose of the nicotine patch is not helpful and demands a stronger patch. Exam Vital Signs Temp Pulse Resp BP Pulse Ox O2 Del Method 97.5 F 101 H 18 112/81 99 Room Air 12/19/24 08:00 12/19/24 09:41 12/19/24 09:41 12/19/24 08:00 12/19/24 08:00 12/19/24 08:00 Narrative Exam General: AAOx3, NAD, well appearing male HEENT: Moist mucous membranes, conjunctiva clear, EOMI, PERRLA, Cardiovascular: S1, S2, radial pulses +2 bilat, RRR Pulmonary: CTAB bilat no cough, no wheezing GI: No tenderness to light or deep palpitation, no guarding, rigidity, rebound tenderness or distension Extremities: No presence of trace or pitting edema in lower extremities bilaterally, dorsalis pedis pulses +2 bilaterally, R shoulder incision site is covered in dressing bandage. AROM is restricted to shoulder level high activities. Neuro: AAOx3, no focal motor or sensory deficits in the UE or LE bilat Psych: Good judgement, thought and behavior Objective Labs 12/19/24 06:49 12/19/24 06:49 Labs: Laboratory Results - last 24 hr 12/19/24 06:49 WBC 10.5 D RBC 4.21 L Hgb 13.4 L Hct 38.5 L MCV 91 MCH 31.8 MCHC 34.8 RDW Std Deviation 39.3 Plt Count 236 Neut % (Auto) 79 Lymph % (Auto) 13 [place] % (Auto) 7 Eos % (Auto) 0 Baso % (Auto) 1 Neut # (Auto) 8.3 H Lymph # (Auto) 1.3 [place] # (Auto) 0.7 Eos # (Auto) 0.0 Baso # (Auto) 0.1 Immature Gran # (Auto) 0.05 H Absolute Nucleated RBC 0.00 Immature Gran % 1 H Nucleated RBC % 0 Sodium 140 Potassium 4.1 Chloride 107 Carbon Dioxide 24.4 Anion Gap 9 BUN 9 Creatinine 0.8 Estim Creat Clear Calc 122.9 eGFR > 60 BUN/Creatinine Ratio 11 L Glucose 95 Calculated Osmolality 278 Calcium 9.4 Corrected Calcium 9.4 Phosphorus 3.0 Magnesium 1.7 Total Bilirubin 0.8 AST 60 H ALT 100 H Alkaline Phosphatase 60 Total Protein 6.5 Albumin 4.3 D Globulin 2.2 L Albumin/Globulin Ratio 2.0 Quality Measures Quality Measures none Assessment & Plan Assessment Current Active Medications: Generic Name Dose Route Start Last Admin Trade Name Freq PRN Reason Stop Dose Admin Acetaminophen 650 mg 12/18/24 15:38 Acetaminophen 325 Mg Tablet PO 01/17/25 15:37 Q6HR PRN Fever >100 or pain 1-3 Hydrocodone Bitart/Acetaminophen 1 tab 12/18/24 15:36 Hydrocodone/Apap 5/325 Tablet PO 12/23/24 15:35 Q4H PRN pain 4-6 Vancomycin HCl 200 mls @ 120 mls/hr 12/18/24 22:00 12/19/24 07:07 Vancomycin/Water 1gm Ivpb IV 12/25/24 21:59 Infused Q8HR MELISSA Infusion Protocol Ceftriaxone Sodium/Dextrose 1 gm in 50 mls @ 100 mls/hr 12/19/24 09:00 12/19/24 09:15 Rocephin/D5w 1gm Iv Premix IV 12/26/24 08:59 Infused QDAY MELISSA Infusion Morphine Sulfate 2 mg 12/18/24 15:36 Morphine Sulf Inj 10 Mg/Ml Vial IVP 12/23/24 15:35 Q4H PRN pain 7-10 or breakthrough pain Nicotine 14 mg 12/19/24 10:55 12/19/24 11:48 Nicotine Patch 14 Mg/24 Hr Patch.Td24 TOP 01/18/25 10:54 14 mg QDAY MELISSA Administration Pharmacy Consult 1 each 12/19/24 09:00 Vancomycin Pharmacy To Dose 1 Each Each IV 01/18/25 08:59 QDAY PRN consult Plan Assessment and Plan A 44 yo male with MHx of Non-Hodgkin's lymphoma (in remission since 2019 s/p chemoradiation) and Rt rotator cuff repair who underwent I&D of Rt shoulder septic arthritis and is being hospitalized currently for recovery after the recent joint wash out procedure. #S/P right rotator cuff repair w/ possible septic joint #S/P incision debridement and drainage R shoulder ([id number]) Patient presented with right shoulder pain, erythema, and drainage, as recommended by Dr. Pacheco for inpatient treatment with IV abx and I&D. Pt took oral Keflex for a couple days before presenting to ED. +In the aftermath of the wash out procedure, pt has been afebrile and shoulder pain is improved, still limited with overhead movements of the Rt UE. Plan: ? IV Rocephin + Vancomycin ? pending wound and blood Ctx ? wound care PRN ? Ortho consulted, Appreciate recs ? Multimodal pain analegesia per pain scale protocol #Nicotine Dependence Patient used to smoke cigerattes for 20 years, however uses oral nicotine now (Zyns) Plan: - Nicotine Patch 14mg Health Maintenance: Disposition: Medsurg DVT Prophylaxis: Pending ortho recs Diet: Regular CODE STATUS: Full Code Attending Provider Attestation/Addendum I have discussed and was present for the essential components of the history, physical examination, diagnosis, and treatment plan with the resident. I agree with the patient's care as documented by the resident and amended herein by me. Yahir Arias DO. Although this document has been carefully reviewed, there may still be some phonetic and other typographical errors. These errors are purely grammatical due to imperfections in the software program and should not be construed in any way to compromise the substance of the patient's medical care during this visit. Patient seen and evaluated this AM. Patient postop day 1 from I&D status post rotator cuff repair. Orthopedic surgery consulted, appreciate recommendations. Plan to keep patient on broad-spectrum antibiotics until wound culture results and can de-escalate. Appreciate specialist recommendations. Patient doing well otherwise, nicotine patch ordered.
[2024-12-19 13:46] LABS: Vancomycin,Trough 14.2 mcg/mL (5.0-10.0)
[2024-12-19] MEDS: HYDROcodone/APAP 5/325 TABLET 1 TAB PO ×2 (14:15→19:46)
[2024-12-20] VITALS (8 sets, daily range): BP systolic 110–148; BP diastolic 73–100; PULSE 51–99; RESP 16–98; TEMP 36.2–36.7; O2SAT 95–99
[2024-12-20 06:09] LABS: Basophils # (Auto) 0.1 Thou/mm3 (0.0-0.2); Basophils % (Auto) 1 % (0-2.5); Eosinophils # (Auto) 0.1 Thou/mm3 (0.0-0.5); Eosinophils % (Auto) 2 % (0-10); Hematocrit 39.3 % (41.0-53.0); Hemoglobin 13.4 g/dL (13.5-16.0); Immature Granulocytes Auto 0.02 Thou/mm3 (0.00-0.00); Lymphocytes # (Auto) 2.1 Thou/mm3 (1.0-4.8); Lymphocytes % (Auto) 31 % (10-50); Mean Corpuscular HGB Conc 34.1 g/dl (31.0-37.0); Mean Corpuscular Hemoglobin 32.0 pg (25.0-35.0); Mean Corpuscular Volume 94 fL (80-100); Monocytes # (Auto) 0.6 Thou/mm3 (0.0-0.8); Monocytes % (Auto) 9 % (0-12); Neutrophils # (Auto) 3.8 Thou/mm3 (1.8-7.7); Neutrophils % (Auto) 57 % (37-80); Nucleated Red Blood Cell # 0.00 Thou/mm3 (0.00-0.00); Nucleated Red Blood Cell % 0 /100 WBC (0); Platelet Count 227 Thou/mm3 (140-440); RDW Standard Deviation 41.9 fL (35.1-43.9); Red Blood Count 4.19 Miln/mm3 (4.50-5.90); White Blood Count 6.7 Thou/mm3 (3.8-10.6)
[2024-12-20] MEDS: VANCOMYCIN/WATER 1GM IVPB 200 ML IV ×3 (06:23→21:07)
[2024-12-20 06:44] LABS: Alanine Aminotransferase 81 U/L (10-49); Albumin, Serum 4.3 gm/dL (3.5-5.0); Albumin/Globulin Ratio 2.0 (1.2-2.2); Alkaline Phosphatase 60 U/L (46-116); Anion Gap 9 (7-16); Aspartate Amino Transferase 34 U/L (0-34); BUN/Creatinine Ratio 10 Ratio (12-20); Bilirubin,Total 0.6 mg/dL (0.3-1.2); Blood Urea Nitrogen 10 mg/dL (9-23); Calcium 9.1 mg/dL (8.3-10.6); Calcium (Corrected) 9.1 mg/dL (8.5-10.1); Carbon Dioxide 25.2 mMol/L (20.0-31.0); Chloride 107 mMol/L (98-107); Creatinine (Component) 1.0 mg/dL (0.6-1.3); Estimated Creatinine Clearance 98.3 mL/min (>60); Globulin 2.1 gm/dL (2.3-3.5); Glucose 92 mg/dL (74-106); Osmolality,Calculated 280 (275-295); Potassium 4.4 mMol/L (3.4-5.1); Sodium 141 mMol/L (136-145); Total Protein 6.4 gm/dL (5.7-8.2); eGFR > 60 See Note
[2024-12-20] MEDS: NICOTINE PATCH 14 MG/24 HR PATCH.TD24 TOP (08:21)
[2024-12-20] MEDS: HYDROcodone/APAP 5/325 TABLET 1 TAB PO ×3 (08:21→21:07)
[2024-12-20] MEDS: cefTRIAXone/D5w 1gm IV premix 1 GM/50 ML BAG IV (08:21)
[2024-12-20 08:29] LABS: Magnesium 1.4 mg/dL (1.6-2.6); Phosphorous 3.5 mg/dL (2.4-5.1)
--- NOTE | 2024-12-20 13:08 | ESPR_ITS ---
Documentation for date of: 12/20/24 Subjective Subjective Interval history: Patient was seen and examined at bedside. No acute events took place overnight. Patient states that as of the effect of the anesthetic wears off, he feels more of his shoulder . Sensation over the right shoulder is improved. Pain at the site is better and controlled with [place] as needed. Patient feels stable to be discharged, however he is informed that it is advisable to wait for the intraoperative wound ctx to come back. Reports a satisfactory response from nicotine patch at 14 mg. Exam Vital Signs Temp Pulse Resp BP Pulse Ox O2 Del Method 97.1 F 67 18 121/87 H 98 Room Air 12/20/24 12:00 12/20/24 12:00 12/20/24 12:00 12/20/24 12:00 12/20/24 12:00 12/20/24 12:00 Narrative Exam General: AAOx3, NAD, well appearing male HEENT: Moist mucous membranes, conjunctiva clear, EOMI, PERRLA, Cardiovascular: S1, S2, radial pulses +2 bilat, RRR Pulmonary: CTAB bilat no cough, no wheezing GI: No tenderness to light or deep palpitation, no guarding, rigidity, rebound tenderness or distension Extremities: No presence of trace or pitting edema in lower extremities bilaterally, dorsalis pedis pulses +2 bilaterally, R shoulder incision site is covered in dressing bandage. AROM is restricted to shoulder level high activities. Neuro: AAOx3, no focal motor or sensory deficits in the UE or LE bilat Psych: Good judgement, thought and behavior Objective Labs 12/20/24 05:26 12/20/24 05:26 Labs: Laboratory Results - last 24 hr 12/19/24 12/20/24 13:00 05:26 WBC 6.7 RBC 4.19 L Hgb 13.4 L Hct 39.3 L MCV 94 MCH 32.0 MCHC 34.1 RDW Std Deviation 41.9 Plt Count 227 Neut % (Auto) 57 Lymph % (Auto) 31 [place] % (Auto) 9 Eos % (Auto) 2 Baso % (Auto) 1 Neut # (Auto) 3.8 Lymph # (Auto) 2.1 [place] # (Auto) 0.6 Eos # (Auto) 0.1 Baso # (Auto) 0.1 Immature Gran # (Auto) 0.02 H Absolute Nucleated RBC 0.00 Immature Gran % 0 Nucleated RBC % 0 Sodium 141 Potassium 4.4 Chloride 107 Carbon Dioxide 25.2 Anion Gap 9 BUN 10 Creatinine 1.0 Estim Creat Clear Calc 98.3 eGFR > 60 BUN/Creatinine Ratio 10 L Glucose 92 Calculated Osmolality 280 Calcium 9.1 Corrected Calcium 9.1 Phosphorus 3.5 Magnesium 1.4 L Total Bilirubin 0.6 AST 34 ALT 81 H Alkaline Phosphatase 60 Total Protein 6.4 Albumin 4.3 Globulin 2.1 L Albumin/Globulin Ratio 2.0 Vancomycin Trough 14.2 H Quality Measures Quality Measures none Assessment & Plan Assessment Current Active Medications: Generic Name Dose Route Start Last Admin Trade Name Freq PRN Reason Stop Dose Admin Acetaminophen 650 mg 12/18/24 15:38 Acetaminophen 325 Mg Tablet PO 01/17/25 15:37 Q6HR PRN Fever >100 or pain 1-3 Hydrocodone Bitart/Acetaminophen 1 tab 12/18/24 15:36 12/20/24 08:21 Hydrocodone/Apap 5/325 Tablet PO 12/23/24 15:35 1 tab Q4H PRN Administration pain 4-6 Vancomycin HCl 200 mls @ 120 mls/hr 12/18/24 22:00 12/20/24 06:23 Vancomycin/Water 1gm Ivpb IV 12/25/24 21:59 120 mls/hr Q8HR MELISSA Administration Protocol Ceftriaxone Sodium/Dextrose 1 gm in 50 mls @ 100 mls/hr 12/19/24 09:00 12/20/24 08:21 Rocephin/D5w 1gm Iv Premix IV 12/26/24 08:59 100 mls/hr QDAY MELISSA Administration Morphine Sulfate 2 mg 12/18/24 15:36 Morphine Sulf Inj 10 Mg/Ml Vial IVP 12/23/24 15:35 Q4H PRN pain 7-10 or breakthrough pain Nicotine 14 mg 12/19/24 10:55 12/20/24 08:21 Nicotine Patch 14 Mg/24 Hr Patch.Td24 TOP 01/18/25 10:54 14 mg QDAY MELISSA Administration Pharmacy Consult 1 each 12/19/24 09:00 Vancomycin Pharmacy To Dose 1 Each Each IV 01/18/25 08:59 QDAY PRN consult Plan Assessment and Plan A 44 yo male with MHx of Non-Hodgkin's lymphoma (in remission since 2019 s/p chemoradiation) and Rt rotator cuff repair who underwent I&D of Rt shoulder septic arthritis and is being hospitalized currently for recovery after the recent joint wash out procedure. #S/P right rotator cuff repair w/ possible septic joint #S/P incision debridement and drainage R shoulder ([id number]) Patient presented with right shoulder pain, erythema, and drainage, as recommended by Dr. Pacheco for inpatient treatment with IV abx and I&D. Pt took oral Keflex for a couple days before presenting to ED. +In the aftermath of arthroscopic lavage, pt has been afebrile and shoulder pain is improved, still limited with overhead movements of the Rt UE. +BCtx: No growth after 48h Plan: ? IV Rocephin 1g + Vancomycin 1g ? pending intraoperative wound Ctx ? wound care PRN ? Ortho consulted, Appreciate recs ? Multimodal pain analegesia per pain scale protocol #Nicotine Dependence Patient used to smoke cigerattes for 20 years, however uses oral nicotine now (Zyns) Plan: - Nicotine Patch 14mg Health Maintenance: Disposition: Medsur DVT Prophylaxis: Pending ortho recs Diet: Regular CODE STATUS: Full Code Attending Provider Attestation/Addendum I have discussed and was present for the essential components of the history, physical examination, diagnosis, and treatment plan with the resident. I agree with the patient's care as documented by the resident and amended herein by me. Yahir Arias DO. Although this document has been carefully reviewed, there may still be some phonetic and other typographical errors. These errors are purely grammatical due to imperfections in the software program and should not be construed in any way to compromise the substance of the patient's medical care during this visit. Patient seen and evaluated this AM. In short, 44-year-old male with significant past medical history of non-Hodgkin's lymphoma in remission, presented to the ED for right shoulder pain status post recent rotator cuff repair on 12/04/[address] Escalante. Patient subsequently admitted for right shoulder joint/incision infection, in which she failed outpatient antibiotic therapy on Keflex. Patient now postop day 2 from I&D of the right shoulder. Blood cultures NGTD however intraoperative cultures of the shoulder wound are still pending and as such, the patient is still on broad-spectrum antibiotics with cefepime and vancomycin. Keep antibiotic coverage till cultures result then can de-escalate and discharge home pending specialist recommendations.
[2024-12-20 13:21] LABS: Vancomycin,Trough 18.8 mcg/mL (5.0-10.0)
[2024-12-21] VITALS (14 sets, daily range): BP systolic 105–128; BP diastolic 68–91; PULSE 50–77; RESP 13–97; TEMP 36.2–37; O2SAT 93–98
--- NOTE | 2024-12-21 | XR_ITS ---
Examination: Ultrasound-guided needle placement right brachial vein. Dual-lumen central line placement (PICC line). Fluoroscopy AP chest, portable, single view Exam date and time:December 01, 2024 1357 hours INDICATIONS: Need for long-term intravenous antibiotic therapy A timeout was completed verifying correct patient, procedure, site, positioning Informed consent provided Technique: The patient's site was prepped and draped in sterile fashion. Maximum Sterile Barrier Technique used including cap, mask, sterile gown, sterile gloves, and sterile full body drape. If ultrasound technique used: sterile gel and sterile probe covers. Hand Hygiene performed using proper scrub, soap and water, or alcohol-based hand rub. Site right portable apparatus utilized to confirm patency of the right brachial vein Utilizing ultrasonographic guidance successful 21-gauge needle puncture into the right brachial vein Ultrasound images recorded and stored. 5 cc 1% lidocaine administered for local anesthetic. Successful micropuncture with a 21-gauge needle is performed. 0.18 wire guide is then introduced into the SVC under fluoroscopic guidance. Dual-lumen catheter dilator is then introduced, followed by the catheter in the SVC and proper position under fluoroscopic guidance. Successful aspiration of blood and flushing with heparinized saline is then performed in the 2 venous limbs. The catheter sutured in place. Findings: Under fluoroscopy, the tip of the catheter is in good position in the vena cava. Portable chest x-ray, post line placement is ordered. Estimated blood loss 3 cc The patient tolerated the procedure well and was in stable and satisfactory condition at completion of the procedure Impression: Successful ultrasound-guided needle placement right brachial vein Successful placement of dual lumen central line, percutaneous Fluoroscopy 0.1 minute radiation dose 0.64 milligray 1 spot fluoroscopic chest film. AP chest completion procedure demonstrates satisfactory position central line. May use central line.
[2024-12-21 06:16] LABS: Basophils # (Auto) 0.1 Thou/mm3 (0.0-0.2); Basophils % (Auto) 2 % (0-2.5); Eosinophils # (Auto) 0.2 Thou/mm3 (0.0-0.5); Eosinophils % (Auto) 3 % (0-10); Hematocrit 40.8 % (41.0-53.0); Hemoglobin 14.3 g/dL (13.5-16.0); Immature Granulocytes Auto 0.03 Thou/mm3 (0.00-0.00); Lymphocytes # (Auto) 1.5 Thou/mm3 (1.0-4.8); Lymphocytes % (Auto) 25 % (10-50); Mean Corpuscular HGB Conc 35.0 g/dl (31.0-37.0); Mean Corpuscular Hemoglobin 32.4 pg (25.0-35.0); Mean Corpuscular Volume 92 fL (80-100); Monocytes # (Auto) 0.5 Thou/mm3 (0.0-0.8); Monocytes % (Auto) 9 % (0-12); Neutrophils # (Auto) 3.5 Thou/mm3 (1.8-7.7); Neutrophils % (Auto) 60 % (37-80); Nucleated Red Blood Cell # 0.00 Thou/mm3 (0.00-0.00); Nucleated Red Blood Cell % 0 /100 WBC (0); Platelet Count 254 Thou/mm3 (140-440); RDW Standard Deviation 40.7 fL (35.1-43.9); Red Blood Count 4.42 Miln/mm3 (4.50-5.90); White Blood Count 5.9 Thou/mm3 (3.8-10.6)
[2024-12-21] MEDS: VANCOMYCIN/WATER 1GM IVPB 200 ML IV (06:18)
[2024-12-21 06:25] LABS: Alanine Aminotransferase 65 U/L (10-49); Albumin, Serum 4.7 gm/dL (3.5-5.0); Albumin/Globulin Ratio 2.1 (1.2-2.2); Alkaline Phosphatase 63 U/L (46-116); Anion Gap 7 (7-16); Aspartate Amino Transferase 18 U/L (0-34); BUN/Creatinine Ratio 12 Ratio (12-20); Bilirubin,Total 0.6 mg/dL (0.3-1.2); Blood Urea Nitrogen 12 mg/dL (9-23); Calcium 10.2 mg/dL (8.3-10.6); Calcium (Corrected) 10.2 mg/dL (8.5-10.1); Carbon Dioxide 26.8 mMol/L (20.0-31.0); Chloride 106 mMol/L (98-107); Creatinine (Component) 1.0 mg/dL (0.6-1.3); Estimated Creatinine Clearance 98.3 mL/min (>60); Globulin 2.2 gm/dL (2.3-3.5); Glucose 91 mg/dL (74-106); Magnesium 1.6 mg/dL (1.6-2.6); Osmolality,Calculated 279 (275-295); Phosphorous 4.0 mg/dL (2.4-5.1); Potassium 4.3 mMol/L (3.4-5.1); Sodium 140 mMol/L (136-145); Total Protein 6.9 gm/dL (5.7-8.2); eGFR > 60 See Note
--- NOTE | 2024-12-21 08:17 | ESCONSULT_ITS ---
RE: ROXANA PACE : 1980 DATE OF CONSULTATION: 12/18/2024 Thank you doctor for asking me to consult the patient whom I saw on 12/17/2024 in my office and also again in the hospital on 12/18/2024 HISTORY OF PRESENT ILLNESS: The patient presented to me earlier with history of pain in the right shoulder. There is a discharge coming out from the right shoulder. The patient underwent right rotator cuff repair with Usama procedure on 12/04/2024. Initially, the patient did fine, but now it got infection. PAST MEDICAL HISTORY: The patient has a history of lymphoma in the past. However, he was in remission. It seems that probably, it might be recurring back at this point. No history of diabetes mellitus, high blood pressure, asthma, seizure, chest pain, myocardial infarction, or stroke. PAST SURGICAL HISTORY: Status post left ankle surgery and also right rotator cuff repair. DRUG HISTORY: The patient was put on IV antibiotics in the hospital. PHYSICAL EXAMINATION: GENERAL: Alert and oriented person. VITAL SIGNS: Pulse is 84 per minute. Blood pressure is 130/76. NECK: Soft, supple. No mass felt. Trachea is centrally placed. CARDIOVASCULAR SYSTEM: First and second heart sounds normal. No murmur heard. RESPIRATORY SYSTEM: Bilateral vesicular breath sounds. CHEST: Clear. ABDOMEN: Soft. No mass felt. Bowel sounds present. EXTREMITIES: Right shoulder examination revealed a scar of about 2-1/2 inches long. On the medial half of the scar, there is opening and a little wet wound with little discharge coming out. The skin margin is rather ragged. ASSESSMENT AND PLAN: The patient was explained the diagnosis and prognosis. The patient was explained that he needs incision and debridement of the wound. Risk with anesthesia was explained and that includes, but not limited to reaction to anesthetic agents, cardiac arrest, and rarely, it might be fatal. Risks with operation includes infection and if that happens, the patient may need further surgical procedure. Other risks include delayed healing, wound dehiscence, etc. No guarantee is given regarding the outcome of the procedure and/or relief of symptoms. Detailed discussion took place. Surgery is booked for 12/18/2024. DT: 13:36:36 TT: 14:46:00 Ref: [id number] - TID: [id number]
[2024-12-21] MEDS: cefTRIAXone/D5w 1gm IV premix 1 GM/50 ML BAG IV (08:25)
[2024-12-21] MEDS: HYDROcodone/APAP 5/325 TABLET 1 TAB PO ×3 (08:25→20:28)
[2024-12-21] MEDS: NICOTINE PATCH 14 MG/24 HR PATCH.TD24 TOP (08:25)
--- NOTE | 2024-12-21 10:00 | PC.NURSE ---
Final wound cultures returned positive for Staphylococcus aureus. Dr. Jimbo carrillo.
--- NOTE | 2024-12-21 10:06 | PD.IDPROG ---
Subjective Subjective Interval history: mrsa in joint cx, r to vanco. await surgical findings Exam Vital Signs Temp Pulse Resp BP Pulse Ox O2 Del Method 97.1 F 65 18 124/91 H 96 Room Air 12/21/24 08:00 12/21/24 08:00 12/21/24 08:00 12/21/24 08:00 12/21/24 08:00 12/21/24 08:00 Objective - Internal Medicine Labs 12/21/24 05:48 12/21/24 05:48 Labs: Laboratory Results - last 24 hr 12/20/24 12/21/24 12:52 05:48 WBC 5.9 RBC 4.42 L Hgb 14.3 Hct 40.8 L MCV 92 MCH 32.4 MCHC 35.0 RDW Std Deviation 40.7 Plt Count 254 Neut % (Auto) 60 Lymph % (Auto) 25 [place] % (Auto) 9 Eos % (Auto) 3 Baso % (Auto) 2 Neut # (Auto) 3.5 Lymph # (Auto) 1.5 [place] # (Auto) 0.5 Eos # (Auto) 0.2 Baso # (Auto) 0.1 Immature Gran # (Auto) 0.03 H Absolute Nucleated RBC 0.00 Immature Gran % 1 H Nucleated RBC % 0 Sodium 140 Potassium 4.3 Chloride 106 Carbon Dioxide 26.8 Anion Gap 7 BUN 12 Creatinine 1.0 Estim Creat Clear Calc 98.3 eGFR > 60 BUN/Creatinine Ratio 12 Glucose 91 Calculated Osmolality 279 Calcium 10.2 Corrected Calcium 10.2 H Phosphorus 4.0 Magnesium 1.6 Total Bilirubin 0.6 AST 18 ALT 65 H Alkaline Phosphatase 63 Total Protein 6.9 Albumin 4.7 Globulin 2.2 L Albumin/Globulin Ratio 2.1 Vancomycin Trough 18.8 H Assessment & Plan A&P Narrative mrsa infection of shoulder with R to vanco. cx date to 12/18 and rx will be thru 01/18 change to ceftarolinen thru 01/18 am home at your discretion will see again prn Time Spent With Patient Time: Total time spent is greater than 50% in coordination of care (as documented) at patient's floor/unit and/or counseling patient: Quality - progress note VTE Deep Vein Thrombosis/Pulmonary Embolism Present on Admission: No
--- NOTE | 2024-12-21 10:11 | ESCONSULT_ITS ---
<Statement entered by Nelson Hirsch MD - 12/23/24 15:05> seen with resident. all findings confirmed HPI Data of Consult Requesting Physician: Sung Arias DO Admitting Provider: Sung Arias DO Attending Provider: Sung Arias DO Primary Care Provider: Physician No Primary/Family Consult Narrative History of present illness: Patient is a 44-year-old male with past medical history of Non-Hodgkin's lymphoma (in remission since 2018, s/p chemotherapy) who came to the ED on 12/18/2024 for 5 days of R shoulder pain, drainage, and associated fever. His orthopedic surgeon performed surgery for his torn rotator cuff 2 weeks prior. He had on and off fevers after that and noted needing frequent dressings changes at home, and ultimately was recommended to go to the ED by his surgeon for admission and I&D procedure. Labs and ED workup unremarkable, shoulder CT done showed no fracture or dislocation, no soft tissue abscess depicted. I&D was done by Dr. Escalante on 12/18. PICC line was placed today. ID was consulted in the setting of antibiotic recommendations, wound culture results from intra-op showed MRSA resistant to vancomycin. cc:: cc: Sung Arias DO Past Medical History Past Medical History Comments PMH COMMENT: Past Medical History: Non-Hodgkin's lymphoma Family History: Noncontributory Surgical History: Rotator cuff repair 12/04 Social History: History of smoking cigarettes for 20 years, however uses oral nicotine now (Zyns), uses marjiuanna occassionally, drinks ~2 beers a night. Does construction for a living. Current Medications: None Allergies: No known drug allergies Exam Vital Signs Temp Pulse Resp BP Pulse Ox O2 Del Method 97.0 F 68 17 114/76 99 Room Air 12/23/24 08:00 12/23/24 08:00 12/23/24 08:00 12/23/24 08:00 12/23/24 08:00 12/23/24 08:00 Narrative Exam Physical Exam General: Awake and in no acute distress. Conversational and non-toxic appearing. HEENT: Normocephalic, atraumatic, mucous membranes moist. Heart: Regular rate and rhythm, normal S1 and S2, no murmurs. Lungs: Clear to auscultation with no wheezing or crackles. Abdomen: Soft, nondistended, nontender, positive bowel sounds. ?No guarding or rebound tenderness. Neurologic: Alert and oriented x3, no gross neurological deficit, and patient able to move all 4 extremities. Extremities: No edema. R shoulder with incision and surrounding erythema, wrapped in dressing. Skin: No rash or ecchymoses. Results Labs 12/23/24 04:20 12/23/24 04:20 Labs: Short CBC 12/23/24 Range/Units 04:20 WBC 6.5 (3.8-10.6) Thou/mm3 Hgb 14.7 (13.5-16.0) g/dL Hct 41.5 (41.0-53.0) % Plt Count 258 (140-440) Thou/mm3 BMP 12/23/24 04:20 Sodium 140 Potassium 4.3 D Chloride 106 Carbon Dioxide 25.1 BUN 12 Creatinine 0.9 Glucose 89 Calcium 9.3 Liver Function 12/23/24 Range/Units 04:20 Total Bilirubin 0.7 (0.3-1.2) mg/dL AST 18 (0-34) U/L ALT 40 (10-49) U/L Alkaline Phosphatase 61 (46-116) U/L Albumin 4.3 (3.5-5.0) gm/dL Quality Measures Quality Measures VTE prophylaxis Medications Home Medications and Allergies Home Medications ?Medication ?Instructions ?Recorded ?Confirmed ?Type hydrocodone 5 mg-acetaminophen 325 1 tab PO Q6H PRN pa in 12/18/24 12/18/24 History mg tablet Allergies Allergy/AdvReac Type Severity Reaction Status Date / Time No Known Allergies Allergy Verified 12/18/24 13:57 Visit Medications Acetaminophen (Acetaminophen 325 Mg Tablet) 650 mg PO Q6HR PRN PRN Reason: Fever >100 or pain 1-3 Stop: 01/17/25 15:37 Hydrocodone Bitart/Acetaminophen (Hydrocodone/Apap 5/325 Tablet) 1 tab PO Q4H PRN PRN Reason: pain 4-6 Stop: 12/23/24 15:35 Last Admin: 12/22/24 20:29 Dose: 1 tab Ceftaroline Fosamil 600 mg/ (Sodium Chloride) 50 mls @ 50 mls/hr IV Q12HR MELISSA Stop: 12/28/24 20:59 Last Admin: 12/23/24 08:44 Dose: 50 mls/hr Magnesium Sulfate (Magnesium Sulfate Ivpb) 4 gm in 50 mls @ 12.5 mls/hr IV X1 ONE Stop: 12/23/24 12:17 Last Admin: 12/23/24 08:45 Dose: 12.5 mls/hr Morphine Sulfate (Morphine Sulf Inj 10 Mg/Ml Vial) 2 mg IVP Q4H PRN PRN Reason: pain 7-10 or breakthrough pain Stop: 12/23/24 15:35 Nicotine (Nicotine Patch 14 Mg/24 Hr Patch.Td24) 14 mg TOP QDAY MELISSA Stop: 01/18/25 10:54 Last Admin: 12/23/24 08:44 Dose: 14 mg Discontinued Medications Fentanyl Citrate (Fentanyl Cit Inj 50 Mcg/Ml Amp 2ml) 50 mcg IVP Q5M PRN PRN Reason: PAIN SCALE 4-10(Mod-Sev Stop: 12/18/24 15:08 Heparin Sodium (Beef Lung) (Heparin Sod Lock Syr 100 Unit/Ml) 500 unit [facility] X1 ONE Stop: 12/21/24 14:01 Last Admin: 12/21/24 14:20 Dose: 500 unit Hydralazine HCl (Hydralazine Inj 20 Mg/Ml Vial) 5 mg IVP Q20M PRN PRN Reason: SEE COMMENTS Stop: 12/18/24 15:08 Piperacillin Sod/Tazobactam (Sod 4.5 gm/ Sodium Chloride) 100 mls @ 200 mls/hr IV NOW ONE Stop: 12/18/24 06:55 Last Infusion: 12/18/24 08:44 Dose: Infused Lactated Ringer's (Lactated Ringers) 1,000 mls @ 999 mls/hr IV .Q1H1M ONE Stop: 12/18/24 07:27 Last Admin: 12/18/24 08:15 Dose: 999 mls/hr Vancomycin HCl 1,500 mg/ (Sodium Chloride) 500 mls @ 200 mls/hr IV X1 ONE Stop: 12/18/24 10:29 Last Admin: 12/18/24 09:19 Dose: 200 mls/hr Vancomycin HCl (Vancomycin/Water 1gm Ivpb) 200 mls @ 120 mls/hr IV Q8HR MELISSA; Protocol Stop: 12/25/24 21:59 Last Admin: 12/21/24 06:18 Dose: 120 mls/hr Ceftriaxone Sodium/Dextrose (Rocephin/D5w 1gm Iv Premix) 1 gm in 50 mls @ 100 mls/hr IV QDAY MELISSA Stop: 12/26/24 08:59 Last Admin: 12/21/24 08:25 Dose: 100 mls/hr Promethazine HCl 12.5 mg/ (Sodium Chloride) 50.5 mls @ 2.5 mls/min IV X1 PRN PRN Reason: NAUSEA OR VOMITING Stop: 12/18/24 15:08 Lidocaine HCl (Lidocaine Inj Pf 1% 30 Ml Vial) 30 ml INFL X1 ONE Stop: 12/21/24 14:01 Last Admin: 12/21/24 15:00 Dose: Not Given Lidocaine HCl (Lidocaine Inj Pf 1% 30 Ml Vial) 1 ml INFL X1 ONE Stop: 12/21/24 14:01 Last Admin: 12/21/24 14:53 Dose: 1 ml Meperidine HCl (Meperidine Inj 50 Mg/Ml Vial) 12.5 mg IVP Q5M PRN PRN Reason: SHIVERING Stop: 12/18/24 15:08 Midazolam HCl (Midazolam Inj 1 Mg/Ml Vial 2 Ml) 1 mg IVP Q5M PRN PRN Reason: ANXIETY Stop: 12/18/24 15:08 Morphine Sulfate (Morphine Sulf Inj 10 Mg/Ml Vial) 4 mg IVP Q10M PRN PRN Reason: PAIN SCALE 4-10(Mod-Sev Stop: 12/18/24 15:08 Nicotine (Nicotine Patch 7 Mg/24 Hr Patch.Td24) 7 mg TOP Q24H MELISSA Stop: 01/17/25 14:29 Last Admin: 12/18/24 15:19 Dose: 7 mg Nicotine (Nicotine Patch 14 Mg/24 Hr Patch.Td24) 14 mg TOP QDAY MELISSA Stop: 01/19/25 08:59 Nicotine (Nicotine Patch 7 Mg/24 Hr Patch.Td24) 7 mg TOP X1 ONE Stop: 12/19/24 09:55 Ondansetron HCl (Ondansetron Inj 2 Mg/Ml Inj 2 Ml) 4 mg IVP X1 PRN PRN Reason: NAUSEA OR VOMITING Stop: 12/18/24 15:08 Pharmacy Consult (Vancomycin Pharmacy To Dose 1 Each Each) 1 each IV QDAY PRN PRN Reason: PROTOCOL Stop: 01/17/25 06:25 Pharmacy Consult (Vancomycin Pharmacy To Dose 1 Each Each) 1 each IV QDAY PRN PRN Reason: consult Stop: 01/18/25 08:59 Rifampin (Rifampin 300 Mg Capsule) 300 mg PO BID MELISSA Stop: 01/31/25 12:00 Assessment & Plan Plan 44-year-old male with a past medical history of Non-Hodgkin's lymphoma (in remission since 2019 s/p chemoradiation) presents with R shoulder pain and drainage with associated fever s/p right rotator cuff repair. Patient was admitted following incision debridement and drainage of right shoulder by Dr. Pacheco. #M and VRSA positive joint wound culture #S/P right rotator cuff repair w/ possible septic joint #S/P incision debridement and drainage R shoulder Patient presents with right shoulder pain, erythema, and drainage. Had I&D 12/18. 12/18 wound culture showed MRSA and vanco resistant Staph aureus, so as a caution will change to ceftaroline which is sensitive. Blood cultures are both negative. -Started IV ceftaroline 600 mg BID, should continue through 01/18 for 4 weeks therapy -Discontinued ceftriaxone -Discontinued vancomyin Patient plan of care was discussed with the attending physician, Dr. Hirsch. Jeanette Patel, PGY-3
--- NOTE | 2024-12-21 11:25 | PC.SS ---
Follow up note: Patient is going to need i.v. antibiotics up to the end of December per physician team. SS updated transfer nurse. SS will speak with patient about his d/c options.
--- NOTE | 2024-12-21 11:41 | PC.SS ---
Follow up note: SS met with patient at bedside to discuss d/c plans. Patient is independent with ADL's. He states his will be home with him and assist him with i.v. antibiotics. His p.c.p. is at [facility] in [place]. Last appt was in August. He doesn't recall who is assigned PCP is because they always switch him to someone new. Patient is agreeable to services for the i.v. antibiotics until December. D/c address and phone number are correct on demographics.
--- NOTE | 2024-12-21 12:27 | ESCONSULT_ITS ---
RE: ROXANA PACE : 1980 DATE OF CONSULTATION: 12/21/2024 REFERRING PHYSICIAN: Dr. Arias. REASON FOR CONSULTATION: Vancomycin-resistant Staph aureus with a high JEREMY, otherwise healthy gentleman who had recent surgery on the right shoulder. HISTORY OF PRESENT ILLNESS: The patient had recent right shoulder rotator cuff repair on 12/04. Signs of infection developed and was put on some oral antibiotics and had surgery on Saturday, 12/18. Cultures from that surgery have shown vancomycin resistant MRSA. ALLERGIES: NONE NOTED. IMMUNIZATIONS: Last tetanus is about a year and a half ago, not take a flu shot every year, has not had COVID vaccine, has not had any pneumococcal vaccine. FAMILY HISTORY: Unremarkable. SOCIAL HISTORY: He lives alone with his . He is a former smoker and quit smoking 3 years ago. PHYSICAL EXAMINATION: On exam, his right shoulder is healing nicely. ASSESSMENT AND PLAN: Washout were performed. He is on broad spectrum therapy with Rocephin and vancomycin. I am asked to see him to adjust his antibiotics for home. His is with him. She is taking some notes. The patient himself looks well. He has no other health problems. He is not diabetic. There is no hardware involved and it looks like his abscess was removed at surgery. As a precaution, we are going to treat him for about 4 weeks for his resistant infection. He has good range of motion of his right shoulder at this time. another abx alone is probably going to be fine as organism appears to be Rifampin resistant. The other p.o. options are not usually given including quinolones and azithromycin, although technically listed as sensitive. I will check on him superficially if he remains in the hospital on Saturday, but he may go home at your discretion before then provided you to get approval for the abx noted. The culture should be sufficient for approval. DT: 10:31:52 TT: 11:18:00 Ref: [id number] - TID: [id number] MTDD
--- NOTE | 2024-12-21 12:41 | PC.CC ---
Addendum entered by Divine Sanders RN 12/21/24 17:33: [facility] accepted and booked. PICC line report sent. Original Note: referral sent to infusion pharmacies and agencies, waiting for responses. pt pending PICC line placement
[2024-12-21] MEDS: HEPARIN SOD LOCK SYR 100 UNIT/ML 500 UNIT STFIELD (14:20)
[2024-12-21] MEDS: LIDOCAINE INJ PF 1% 30 ML VIAL INFL (14:53)
--- NOTE | 2024-12-21 19:48 | ESPR_ITS ---
<Statement entered by Jenise Choi MD - 12/22/24 16:10> I have reviewed the note and agree with the resident's assessment & plan with exceptions as below. I have personally reviewed labs, imaging, home meds/prior records, examined the patient, formulated and discussed management plan with the IM team. Pt examined at bedside today. Pt to get PICC line in for IV Abx, will need until 01/18. Will initiate home health orders as well. Pt will get IV Ceftaroline 600 mg for MRSA culture from shoulder. Repeat hematology and chemistry in AM. Jenise Choi, PGY-2 Internal Medicine Documentation for date of: 12/21/24 Subjective Subjective Interval history: Patient was seen and examined at bedside. No acute events took place overnight. Patient states that as of the effect of the anesthetic wears off, he feels more of his shoulder . Sensation over the right shoulder is improved. Pain at the site is better and controlled with Clark as needed. Patient feels stable. Reports a satisfactory response from nicotine patch at 14 mg. Exam Vital Signs Temp Pulse Resp BP Pulse Ox O2 Del Method 97.3 F 75 19 121/85 H 97 Room Air 12/21/24 16:00 12/21/24 16:01 12/21/24 16:01 12/21/24 16:00 12/21/24 16:00 12/21/24 16:00 Narrative Exam General: AAOx3, NAD, well appearing male HEENT: Moist mucous membranes, conjunctiva clear, EOMI, PERRLA, Cardiovascular: S1, S2, radial pulses +2 bilat, RRR Pulmonary: CTAB bilat no cough, no wheezing GI: No tenderness to light or deep palpitation, no guarding, rigidity, rebound tenderness or distension Extremities: No presence of trace or pitting edema in lower extremities bilaterally, dorsalis pedis pulses +2 bilaterally, R shoulder incision site is covered in dressing bandage. AROM is restricted to shoulder level high activities. Neuro: AAOx3, no focal motor or sensory deficits in the UE or LE bilat Psych: Good judgement, thought and behavior Objective Labs 12/22/24 04:27 12/22/24 04:27 Labs: Laboratory Results - last 24 hr 12/21/24 05:48 WBC 5.9 RBC 4.42 L Hgb 14.3 Hct 40.8 L MCV 92 MCH 32.4 MCHC 35.0 RDW Std Deviation 40.7 Plt Count 254 Neut % (Auto) 60 Lymph % (Auto) 25 [place] % (Auto) 9 Eos % (Auto) 3 Baso % (Auto) 2 Neut # (Auto) 3.5 Lymph # (Auto) 1.5 [place] # (Auto) 0.5 Eos # (Auto) 0.2 Baso # (Auto) 0.1 Immature Gran # (Auto) 0.03 H Absolute Nucleated RBC 0.00 Immature Gran % 1 H Nucleated RBC % 0 Sodium 140 Potassium 4.3 Chloride 106 Carbon Dioxide 26.8 Anion Gap 7 BUN 12 Creatinine 1.0 Estim Creat Clear Calc 98.3 eGFR > 60 BUN/Creatinine Ratio 12 Glucose 91 Calculated Osmolality 279 Calcium 10.2 Corrected Calcium 10.2 H Phosphorus 4.0 Magnesium 1.6 Total Bilirubin 0.6 AST 18 ALT 65 H Alkaline Phosphatase 63 Total Protein 6.9 Albumin 4.7 Globulin 2.2 L Albumin/Globulin Ratio 2.1 Quality Measures Quality Measures none Assessment & Plan Assessment Current Active Medications: Generic Name Dose Route Start Last Admin Trade Name Freq PRN Reason Stop Dose Admin Acetaminophen 650 mg 12/18/24 15:38 Acetaminophen 325 Mg Tablet PO 01/17/25 15:37 Q6HR PRN Fever >100 or pain 1-3 Hydrocodone Bitart/Acetaminophen 1 tab 12/18/24 15:36 12/21/24 15:52 Hydrocodone/Apap 5/325 Tablet PO 12/23/24 15:35 1 tab Q4H PRN Administration pain 4-6 Ceftaroline Fosamil 600 mg/ 50 mls @ 50 mls/hr 12/21/24 21:00 Sodium Chloride IV 12/28/24 20:59 Q12HR MELISSA Morphine Sulfate 2 mg 12/18/24 15:36 Morphine Sulf Inj 10 Mg/Ml Vial IVP 12/23/24 15:35 Q4H PRN pain 7-10 or breakthrough pain Nicotine 14 mg 12/19/24 10:55 12/21/24 08:25 Nicotine Patch 14 Mg/24 Hr Patch.Td24 TOP 01/18/25 10:54 14 mg QDAY MELISSA Administration Plan Assessment and Plan A 44 yo male with MHx of Non-Hodgkin's lymphoma (in remission since 2019 s/p chemoradiation) and Rt rotator cuff repair who underwent I&D of Rt shoulder septic arthritis and is being hospitalized currently for recovery after the recent arthroscopic lavage procedure. #S/P right rotator cuff repair w/ possible septic joint #S/P incision debridement and drainage R shoulder ([id number]) Patient presented with right shoulder pain, erythema, and drainage, as recommended by Dr. Pacheco for inpatient treatment with IV abx and I&D. Pt took oral Keflex for a couple days before presenting to ED. BCtx: No growth after 48h +Wound Ctx: positive for MRSA +In the aftermath of arthroscopic lavage, pt has been afebrile and shoulder pain is improved, still limited with overhead movements of the Rt UE. Patient was being treated with broad-spectrum IV ABX Rocephin 1 g plus vancomycin 1 g daily. In the light of the sensitivity profile of intraoperative wound cultures, the choice of antibiotics was changed to ceftaroline IV 600 mg every 12 hours. Plan: ? Completed IR insertion of PICC line for long-term outpatient antibiotic therapy. ? Ceftaroline IV 600mg Qday 12/21 - 01/18/2025. ? Multimodal pain analegesia per pain scale protocol #Nicotine Dependence Patient used to smoke cigerattes for 20 years, however uses oral nicotine now (Zyns) Plan: - Nicotine Patch 14mg Health Maintenance: Disposition: Medsurg DVT Prophylaxis: Pending ortho recs Diet: Regular CODE STATUS: Full Code This case was discussed with my attending physician, Dr. Coleman, and senior resident, Dr Choi. Marcie Mares, DO PGY I Attending Provider Attestation/Addendum 44-year-old male patient with non-Hodgkin's lymphoma status post I&D of right shoulder joint. Patient has MRSA growing on fluid obtained. He was started on ceftaroline 600 mg IV twice daily to January 18. The patient will have PICC line insertion for IV antibiotic treatment. Discussed with housestaff.
[2024-12-21] MEDS: CEFTAROLINE FOSAMIL IV (20:27)
[2024-12-21] MEDS: SODIUM CHLORIDE 0.9% IV (20:27)
[2024-12-22] VITALS: BP 113/81; PULSE 58; RESP 18; TEMP 36.3; O2SAT 97
[2024-12-22 04:00] VITALS: BP 105/69; PULSE 56; RESP 17; TEMP 36.2; O2SAT 98
[2024-12-22 05:33] LABS: Basophils # (Auto) 0.1 Thou/mm3 (0.0-0.2); Basophils % (Auto) 1 % (0-2.5); Eosinophils # (Auto) 0.2 Thou/mm3 (0.0-0.5); Eosinophils % (Auto) 3 % (0-10); Hematocrit 41.3 % (41.0-53.0); Hemoglobin 14.4 g/dL (13.5-16.0); Immature Granulocytes Auto 0.04 Thou/mm3 (0.00-0.00); Lymphocytes # (Auto) 1.5 Thou/mm3 (1.0-4.8); Lymphocytes % (Auto) 20 % (10-50); Mean Corpuscular HGB Conc 34.9 g/dl (31.0-37.0); Mean Corpuscular Hemoglobin 31.7 pg (25.0-35.0); Mean Corpuscular Volume 91 fL (80-100); Monocytes # (Auto) 0.6 Thou/mm3 (0.0-0.8); Monocytes % (Auto) 7 % (0-12); Neutrophils # (Auto) 5.1 Thou/mm3 (1.8-7.7); Neutrophils % (Auto) 68 % (37-80); Nucleated Red Blood Cell # 0.00 Thou/mm3 (0.00-0.00); Nucleated Red Blood Cell % 0 /100 WBC (0); Platelet Count 252 Thou/mm3 (140-440); RDW Standard Deviation 40.0 fL (35.1-43.9); Red Blood Count 4.54 Miln/mm3 (4.50-5.90); White Blood Count 7.5 Thou/mm3 (3.8-10.6)
[2024-12-22 06:14] LABS: Alanine Aminotransferase 49 U/L (10-49); Albumin, Serum 4.5 gm/dL (3.5-5.0); Albumin/Globulin Ratio 2.0 (1.2-2.2); Alkaline Phosphatase 61 U/L (46-116); Anion Gap 8 (7-16); Aspartate Amino Transferase 18 U/L (0-34); BUN/Creatinine Ratio 14 Ratio (12-20); Bilirubin,Total 0.5 mg/dL (0.3-1.2); Blood Urea Nitrogen 13 mg/dL (9-23); Calcium 9.4 mg/dL (8.3-10.6); Calcium (Corrected) 9.4 mg/dL (8.5-10.1); Carbon Dioxide 24.3 mMol/L (20.0-31.0); Chloride 107 mMol/L (98-107); Creatinine (Component) 0.9 mg/dL (0.6-1.3); Estimated Creatinine Clearance 109.3 mL/min (>60); Globulin 2.2 gm/dL (2.3-3.5); Glucose 86 mg/dL (74-106); Magnesium 1.7 mg/dL (1.6-2.6); Osmolality,Calculated 276 (275-295); Phosphorous 3.4 mg/dL (2.4-5.1); Potassium 3.8 mMol/L (3.4-5.1); Sodium 139 mMol/L (136-145); Total Protein 6.7 gm/dL (5.7-8.2); eGFR > 60 See Note
[2024-12-22 06:48] LABS: Hepatitis C Antibody Non Reactive (Non React)
[2024-12-22 07:59] VITALS: BP 106/75; PULSE 83; RESP 17; TEMP 36.2; O2SAT 98
[2024-12-22] MEDS: SODIUM CHLORIDE 0.9% IV ×2 (08:56→20:29)
[2024-12-22] MEDS: NICOTINE PATCH 14 MG/24 HR PATCH.TD24 TOP (08:56)
[2024-12-22] MEDS: CEFTAROLINE FOSAMIL IV ×2 (08:56→20:29)
--- NOTE | 2024-12-22 09:42 | PC.CM ---
Addendum entered by Mel Ralph RN 12/22/24 17:02: I received a call from [facility] [place] stating patient will not be able to discharge today because they will have to get authorization from patient's insurance. They asked that I send information over that justifies why patient needs. Ceftaroline 600 mg IV q12 hrs. I will ask Dr. Choi to document why patient needs this abx. Addendum entered by Mel Ralph RN 12/22/24 15:57: I updated Dr. Choi that patient can be discharged today. Addendum entered by Mel Ralph RN 12/22/24 15:56: Patient will be discharged today. Dr. Crump state patient can skip his ABX does tonight and he can get his abx starting tomorrow with [facility] health. [facility] will deliver medication tonight and [facility] will open patient tomorrow. Original Note: I received a call from Lisa BOSTON asking about HH. I send a message on [employer] to [facility] and [facility] to see if they are able to accept patient.
--- NOTE | 2024-12-22 10:55 | CHAP ---
Patient was visited by a Spiritual Care Volunteer on 12/22/2024 between 0900 and 0958 and received comfort, encouragement and/or prayer.
[2024-12-22 12:00] VITALS: BP 116/78; PULSE 68; RESP 17; TEMP 36.3; O2SAT 97
[2024-12-22 13:32] LABS: HIV (1&2) Antibody Rapid Non-Reactive
--- NOTE | 2024-12-22 13:48 | PC.NURSE ---
Using sterile technique changed GUILLERMO PICC line dressing.
[2024-12-22] MEDS: HYDROcodone/APAP 5/325 TABLET 1 TAB PO ×2 (15:25→20:29)
[2024-12-22 16:00] VITALS: BP 105/81; PULSE 65; RESP 18; TEMP 36.3; O2SAT 98
--- NOTE | 2024-12-22 16:11 | ESDS_ITS ---
Planned Discharge Date 12/22/24 DS: Providers Provider Date of admission: 12/20/24 14:13 Primary care physician: Physician No Primary/Family Admitting Provider: Sung Arias DO Attending Provider on Admission: Sung Arias DO Consults: 12/18/24 09:32 Consult to Orthopedic Stat Comment: Consulting Provider: Venkat Pacheco 12/21/24 10:03 Consult to Infectious Diseases Routine Comment: Wound Cx Staph aureus resist to Vanc, sens to ZOSY Consulting Provider: Nelson Hirsch Attending Provider on DC: James Coleman MD Discharging Provider: James Coleman MD DS: Diagnosis Problem List Completed Was Problem List Reviewed/Reconciled?: Yes Hospital Course Hospital Course Hospital course: The patient is a 44-year-old male with a history of Non-Hodgkin?s lymphoma in remission since 2019 (status post chemoradiation) and prior right rotator cuff repair, who was admitted for management of suspected septic arthritis of the right shoulder. He presented with pain, erythema, and drainage from the surgical site, and had taken a short course of oral Keflex prior to evaluation. On recommendation by Orthopedics, the patient underwent incision and drainage with arthroscopic lavage of the right shoulder on 18 December 2024. Intraoperative wound cultures grew MRSA, while blood cultures remained negative after 48 hours. Postoperatively, the patient was afebrile and demonstrated clinical improvement in shoulder pain, though range of motion remains limited. Initial empiric antibiotics included IV Rocephin and vancomycin, which were subsequently narrowed to IV ceftaroline 600 mg every 12 hours based on culture sensitivity. A PICC line was placed for outpatient antibiotic therapy, which is scheduled to continue through 18 January 2025. Pain has been managed with a multimodal regimen according to his reported symptoms. The patient is stable for discharge with follow-up planned with Orthopedics and Infectious Disease. PATIENT INSTRUCTIONS: * Follow-up with PCP within 1-2 weeks of discharge. * Follow-up with orthopedics, Dr. Pacheco, within 1-2 weeks of discharge. * You may use NOZIN nasal swap up once daily up to 5 days for MRSA decolonization. * Continue CEFTAROLINE 600 mg twice daily until 01/18/2025. * You may use TYLENOL over the counter as needed for pain. * Continue taking medications as prescribed below. * Return to Emergency Room if symptoms persist, worsen, or new symptoms develop. ADMISSION DIAGNOSES: Septic right shoulder join S/P incision debridement and drainage Hx recent right rotator cuff repair Nicotine Dependence Case was discussed with attending physician. Durga Nguyen DO PGY II This document was transcribed using voice recognition technology. Minor inaccuracies may be present. Time Spent with Patient Time attestation: Total time spent providing and/or coordinating discharge services: Time spent: Greater than 30 minutes Quality: VTE Deep Vein Thrombosis/Pulmonary Embolism Present on Admission: No Home Health Home Health Referral Orders: 12/21/24 11:00 Home Health Referral Routine Reason For Exam: IV antibiotic home infusion Home-Bound The patient must either because of illness or injury, need the aid of supportive devices such as crutches, canes, wheelchairs, and walkers; the use of special transportation; or the assistance of another person in order to leave their place of residence; OR have a condition such that leaving his or her home is medically contraindicated. In addition, the patient also meets the following criteria: patient is normally unable to leave the home and leaving home requires considerable taxing effort. Addendum to Home Health Certification Practitioner's Certification: I certify that the patient has been under my care in the hospital and the care of attending physician (see below). We had a vhod-ev-[id number] encounter on (see date below). My clinical findings indicate that the patient is home bound per the above criteria and the Home Health Services noted in these orders are medically necessary. The primary reason for the [id number]-kg-[id number] encounter is related to the fact that the patient requires home health services. Date Certifying Opvx-[id number] Physician Encounter: 12/21/24 Physician's Name who will Assume Oversight for Services: Armen Grullon Physician's Phone No.who will Assume Oversight for Service: DRAWING KILN OPERATOR - Community Resources: Yes PT to Evaluate: Yes PT to evaluate and provide a treatmnet plan to increase patient's mobility and strength. Wound Care: No IV Therapy: Yes IV Medication: Ceftaroline IV Dose: 600 mg IV Frequency: q12 hrs IV Stop Date: 01/18/25 Discontinue PICC Line Once Treatment Complete: Yes RN Safety Evaluation: Yes RN to evaluate and create a plan of care that will produce positive outcomes. Palliative Treatment: No Palliative treatment and evaluate the need for hospice. Home Health Aide - Personal Care: No Home Health Aide to assist with any ADL's. Exam Vital Signs Temp Pulse Resp BP Pulse Ox O2 Del Method 97.3 F 68 17 116/78 97 Room Air 12/22/24 12:00 12/22/24 12:00 12/22/24 12:00 12/22/24 12:00 12/22/24 12:00 12/22/24 12:00 Narrative Exam General: AAOx3, NAD, well appearing male HEENT: Moist mucous membranes, conjunctiva clear, EOMI, PERRLA, Cardiovascular: S1, S2, radial pulses +2 bilat, RRR Pulmonary: CTAB bilat no cough, no wheezing GI: No tenderness to light or deep palpitation, no guarding, rigidity, rebound tenderness or distension Extremities: No presence of trace or pitting edema in lower extremities bilaterally, dorsalis pedis pulses +2 bilaterally, R shoulder incision site is covered in dressing bandage. AROM is restricted to shoulder level high activities. Right PICC line noted. Neuro: AAOx3, no focal motor or sensory deficits in the UE or LE bilat Psych: Good judgement, thought and behavior Discharge Plan Plan Patient Disposition: Home w/HOME HEALTH Care Plan Goals: * Follow-up with PCP within 1-2 weeks of discharge. * Follow-up with orthopedics, Dr. Pacheco, within 1-2 weeks of discharge. * You may use NOZIN nasal swap up once daily up to 5 days for MRSA decolonization. * Continue CEFTAROLINE 600 mg twice daily until 01/18/2025. * You may use TYLENOL over the counter as needed for pain. * Continue taking medications as prescribed below. * Return to Emergency Room if symptoms persist, worsen, or new symptoms develop. Prescriptions/Referrals Prescriptions/Med Rec: New ethyl alcohol [Nozin Popswab] 62 % swab 1 ea topical 1XD Qty: 10 0RF Rx Instructions: Use once daily for at least 5 days Continued hydrocodone-acetaminophen 5-325 mg tablet 1 tab PO Q6H PRN (Reason: pain) Patient Comments: TAKE ONE TABLET BY MOUTH EVERY 4 TO 6 HOURS FOR 5 DAYS Discontinued cephalexin 500 mg capsule 500 mg PO Q8H Patient Comments: TAKE ONE CAPSULE BY MOUTH EVERY 8 HOURS DIRECTED Referrals: No Primary/Family,Physician [Primary Care Provider] - Venkat Pacheco MD [Physician] - Patient/Caregiver Discharge Instructions Education Materials: Surgery Anesthesia After, Preventing Surgical Site Infections, ED Wound Check (Infection) Print Language: Yakut Stand Alone Forms: Yessenia Award Info., Patient Portal Info Letter Quality Discharge Quality Measures VTE prophylaxis MD Attestestation MD Attestation Patient with joint infection still requiring IV antibiotic with ceftaroline. desk director called me. Hold discharge until they get antibiotic available for home infusion. I discussed with and supervised the resident physician who took care of this patient. I agree with the assessment and plan as above.
--- NOTE | 2024-12-22 16:50 | PC.CC ---
Notified charge nurse, bedside nurse and Dr. Coleman that we are not able to discharge patient due to [facility] not able to deliver IV medications today. [facility] is working on insurance auth today. Silvana Leal RN also made aware.
[2024-12-22 20:00] VITALS: BP 112/70; PULSE 70; RESP 18; TEMP 36.2; O2SAT 98
[2024-12-23 04:00] VITALS: BP 99/66; PULSE 63; RESP 17; TEMP 36.4; O2SAT 96
[2024-12-23 04:51] LABS: Basophils # (Auto) 0.1 Thou/mm3 (0.0-0.2); Basophils % (Auto) 2 % (0-2.5); Eosinophils # (Auto) 0.3 Thou/mm3 (0.0-0.5); Eosinophils % (Auto) 4 % (0-10); Hematocrit 41.5 % (41.0-53.0); Hemoglobin 14.7 g/dL (13.5-16.0); Immature Granulocytes Auto 0.02 Thou/mm3 (0.00-0.00); Lymphocytes # (Auto) 1.8 Thou/mm3 (1.0-4.8); Lymphocytes % (Auto) 28 % (10-50); Mean Corpuscular HGB Conc 35.4 g/dl (31.0-37.0); Mean Corpuscular Hemoglobin 32.5 pg (25.0-35.0); Mean Corpuscular Volume 92 fL (80-100); Monocytes # (Auto) 0.5 Thou/mm3 (0.0-0.8); Monocytes % (Auto) 7 % (0-12); Neutrophils # (Auto) 3.8 Thou/mm3 (1.8-7.7); Neutrophils % (Auto) 59 % (37-80); Nucleated Red Blood Cell # 0.00 Thou/mm3 (0.00-0.00); Nucleated Red Blood Cell % 0 /100 WBC (0); Platelet Count 258 Thou/mm3 (140-440); RDW Standard Deviation 40.0 fL (35.1-43.9); Red Blood Count 4.53 Miln/mm3 (4.50-5.90); White Blood Count 6.5 Thou/mm3 (3.8-10.6)
[2024-12-23 05:16] LABS: Alanine Aminotransferase 40 U/L (10-49); Albumin, Serum 4.3 gm/dL (3.5-5.0); Albumin/Globulin Ratio 1.9 (1.2-2.2); Alkaline Phosphatase 61 U/L (46-116); Anion Gap 9 (7-16); Aspartate Amino Transferase 18 U/L (0-34); BUN/Creatinine Ratio 13 Ratio (12-20); Bilirubin,Total 0.7 mg/dL (0.3-1.2); Blood Urea Nitrogen 12 mg/dL (9-23); Calcium 9.3 mg/dL (8.3-10.6); Calcium (Corrected) 9.3 mg/dL (8.5-10.1); Carbon Dioxide 25.1 mMol/L (20.0-31.0); Chloride 106 mMol/L (98-107); Creatinine (Component) 0.9 mg/dL (0.6-1.3); Estimated Creatinine Clearance 109.3 mL/min (>60); Globulin 2.3 gm/dL (2.3-3.5); Glucose 89 mg/dL (74-106); Magnesium 1.5 mg/dL (1.6-2.6); Osmolality,Calculated 278 (275-295); Phosphorous 3.2 mg/dL (2.4-5.1); Potassium 4.3 mMol/L (3.4-5.1); Sodium 140 mMol/L (136-145); Total Protein 6.6 gm/dL (5.7-8.2); eGFR > 60 See Note
[2024-12-23 08:00] VITALS: BP 114/76; PULSE 68; RESP 17; TEMP 36.1; O2SAT 99
[2024-12-23] MEDS: CEFTAROLINE FOSAMIL IV (08:44)
[2024-12-23] MEDS: NICOTINE PATCH 14 MG/24 HR PATCH.TD24 TOP (08:44)
[2024-12-23] MEDS: SODIUM CHLORIDE 0.9% IV (08:44)
[2024-12-23] MEDS: Magnesium Sulfate 4 GM Ivpb 4 GM/50 ML BAG IV (08:45)
--- NOTE | 2024-12-23 09:15 | PC.CM ---
[facility] infusion company was able to get authorization on patient. [facility] ready to follow. [facility] will deliver the medication today and [facility] can see patient tomorrow. . I let DR. Choi know that patient can d/c. I called and left a message with Lisa BOSTON with the update.
--- NOTE | 2024-12-23 09:42 | PC.SS ---
SS spoke to physician who states that home health is set up now for patient. Dc today.
--- NOTE | 2024-12-23 14:00 | ESDS_ITS ---
Planned Discharge Date 12/23/24 DS: Providers Provider Date of admission: 12/20/24 14:13 Primary care physician: Physician No Primary/Family Admitting Provider: Sung Arias DO Attending Provider on Admission: Sung Arias DO Consults: 12/18/24 09:32 Consult to Orthopedic Stat Comment: Consulting Provider: Venkat Pacheco 12/21/24 10:03 Consult to Infectious Diseases Routine Comment: Wound Cx Staph aureus resist to Vanc, sens to ZOSY Consulting Provider: Nelson Hirsch Attending Provider on DC: James Coleman MD Discharging Provider: James Coleman MD DS: Diagnosis Problem List Completed Was Problem List Reviewed/Reconciled?: Yes Hospital Course Hospital Course Hospital course: The patient is a 44-year-old male with a history of Non-Hodgkin?s lymphoma in remission since 2019 (status post chemoradiation) and prior right rotator cuff repair, who was admitted for management of suspected septic arthritis of the right shoulder. He presented with pain, erythema, and drainage from the surgical site, and had taken a short course of oral Keflex prior to evaluation. On recommendation by Orthopedics, the patient underwent incision and drainage with arthroscopic lavage of the right shoulder on 18 December 2024. Intraoperative wound cultures grew MRSA, while blood cultures remained negative after 48 hours. Postoperatively, the patient was afebrile and demonstrated clinical improvement in shoulder pain, though range of motion remains limited. Initial empiric antibiotics included IV Rocephin and vancomycin, which were subsequently narrowed to IV ceftaroline 600 mg every 12 hours based on culture sensitivity. A PICC line was placed for outpatient antibiotic therapy, which is scheduled to continue through 18 January 2025. Pain has been managed with a multimodal regimen according to his reported symptoms. The patient is scheduled to receive PT/OT as outpatient. The patient is stable for discharge with follow-up planned with Orthopedics and Infectious Disease. PATIENT INSTRUCTIONS: * Follow-up with PCP within 1-2 weeks of discharge. * Follow-up with orthopedics, Dr. Pacheco, within 1-2 weeks of discharge. * You may use NOZIN nasal swap up once daily up to 5 days for MRSA decolonization. * Continue CEFTAROLINE 600 mg twice daily until 01/18/2025. * You may use TYLENOL over the counter as needed for pain. * Continue taking medications as prescribed below. * Return to Emergency Room if symptoms persist, worsen, or new symptoms develop. ADMISSION DIAGNOSES: Septic right shoulder join S/P incision debridement and drainage Hx recent right rotator cuff repair Nicotine Dependence This case was discussed with my attending physician, Dr. Coleman. Marcie Mares, DO PGY I This document was transcribed using voice recognition technology. Minor inaccuracies may be present. Time Spent with Patient Time attestation: Total time spent providing and/or coordinating discharge services: Time spent: Greater than 30 minutes Quality: VTE Deep Vein Thrombosis/Pulmonary Embolism Present on Admission: No Exam Vital Signs Temp Pulse Resp BP Pulse Ox O2 Del Method 97.0 F 68 17 114/76 99 Room Air 12/23/24 08:00 12/23/24 08:00 12/23/24 08:00 12/23/24 08:00 12/23/24 08:00 12/23/24 08:00 Narrative Exam General: AAOx3, NAD, well appearing male HEENT: Moist mucous membranes, conjunctiva clear, EOMI, PERRLA, Cardiovascular: S1, S2, radial pulses +2 bilat, RRR Pulmonary: CTAB bilat no cough, no wheezing GI: No tenderness to light or deep palpitation, no guarding, rigidity, rebound tenderness or distension Extremities: No presence of trace or pitting edema in lower extremities bilaterally, dorsalis pedis pulses +2 bilaterally, R shoulder incision site is covered in dressing bandage. AROM is restricted to shoulder level high activities. Neuro: AAOx3, no focal motor or sensory deficits in the UE or LE bilat Psych: Good judgement, thought and behavior Discharge Plan Plan Patient Disposition: Home w/HOME HEALTH Care Plan Goals: * Follow-up with PCP within 1-2 weeks of discharge. * Follow-up with orthopedics, Dr. Pacheco, within 1-2 weeks of discharge. * Continue with home health physical therapy * You may use NOZIN nasal swap up once daily up to 5 days for MRSA decolonization. * Continue CEFTAROLINE 600 mg twice daily until 01/18/2025. * You may use TYLENOL over the counter as needed for pain. * Continue taking medications as prescribed below. * Return to Emergency Room if symptoms persist, worsen, or new symptoms develop. Prescriptions/Referrals Prescriptions/Med Rec: New ethyl alcohol [Nozin Popswab] 62 % swab 1 ea topical 1XD Qty: 10 0RF Rx Instructions: Use once daily for at least 5 days ceftaroline fosamil 600 mg recon soln 600 mg IV QDAY Rx Instructions: administer over 5-60 mins Continued hydrocodone-acetaminophen 5-325 mg tablet 1 tab PO Q6H PRN (Reason: pain) Patient Comments: TAKE ONE TABLET BY MOUTH EVERY 4 TO 6 HOURS FOR 5 DAYS Discontinued cephalexin 500 mg capsule 500 mg PO Q8H Patient Comments: TAKE ONE CAPSULE BY MOUTH EVERY 8 HOURS DIRECTED Referrals: No Primary/Family,Physician [Primary Care Provider] - Venkat Pacheco MD [Physician] - Patient/Caregiver Discharge Instructions Other Discharge Activity Instructions:: Follow-up with PCP within 1-2 weeks of discharge. ? Follow-up with orthopedics, Dr. Pacheco, within 1-2 weeks of discharge. ? Continue with home health physical therapy ? You may use NOZIN nasal swap up once daily up to 5 days for MRSA decolonization. ? Continue CEFTAROLINE 600 mg twice daily until 01/18/2025. ? You may use TYLENOL over the counter as needed for pain. ? Continue taking medications as prescribed below. ? Return to Emergency Room if symptoms persist, worsen, or new symptoms develop. Education Materials: Surgery Anesthesia After, Preventing Surgical Site Infections, ED Wound Check (Infection) Print Language: Korean Stand Alone Forms: Yessenia Award Info., Patient Portal Info Letter Discharge Order Discharge Orders: Discharge (Routine); Ordered 12/23/24 Ordered By: Vinod Winslow Quality Discharge Quality Measures VTE prophylaxis Attestestation Attestation I discussed with and supervised the resident physician who took care of this patient. I agree with the assessment and discharge plan as above. Follow-up with Dr. Pacheco as scheduled. The patient will continue on IV ceftaroline infusion at home. Home health requested.
--- NOTE | 2024-12-24 07:45 | PC.CC ---
sent dc summary and instructions to [facility] and [facility]. SOC 12/24
== END 2024-12-23 11:30 | disposition home health service (06) | DRG 721 ==
LOC: SERX 08:17 → SERHOLD 10:14 → S3NX 12-20 14:31 → SERHOLD 12-21 06:30
PROVIDERS: Internal Medicine Infectious Disease; Orthopaedic Surgery; Admitting Provider Student in an Organized Health Care Education/Training Program; Emergency Provider Emergency Medicine; Visit Provider Student in an Organized Health Care Education/Training Program
PROC: 0JBD0ZZ Excision of Right Upper Arm Subcutaneous Tissue and Fascia, Open Approach (ICD-10-PCS; principal; 2024-12-18 14:00)
DX: T81.49XA Infection following a procedure, other surgical site, initial encounter (principal); M00.9 Pyogenic arthritis, unspecified; B95.62 Methicillin resistant Staphylococcus aureus infection as the cause of diseases classified elsewhere; C85.9A Non-Hodgkin lymphoma, unspecified, in remission; Z16.21 Resistance to vancomycin; F17.290 Nicotine dependence, other tobacco product, uncomplicated; Z92.21 Personal history of antineoplastic chemotherapy; Z98.890 Other specified postprocedural states; Y83.8 Other surgical procedures as the cause of abnormal reaction of the patient, or of later complication, without mention of misadventure at the time of the procedure
CPT/HCPCS: 36415; 73201; 80053; 80202; 83735; 84100; 85025; 85610; 86703; 86803; 87040; 87070; 87075; 87077; 87186; 87205; 96365; 96366; 99284; A4217; A4649; C1751; C1894; G0378; J0696; J0712; J1100; J1580; J1642; J2543; J2704; J2765; J2795; J3010; J3370; J3375; J3475; J3490; J7050; J7120; J7999; Q9967; A9270